=== PATIENT | male | born 1955 | race Caucasian/White ===

== ENCOUNTER 2022-01-28 05:30 | Inpatient (IN) | payer OTHER, SELFPAY ==
--- NOTE | ~2022-01-28 | CT_ITS ---
EXAMINATION: CT ABDOMEN AND PELVIS WITH CONTRAST CLINICAL INFORMATION: Abdominal pain. Elevated white blood count. COMPARISON: None TECHNIQUE: Multidetector volumetric images were obtained from the superior aspect of the liver through the pubic symphysis following administration 85 mL of Omnipaque 350 intravenous contrast. Sagittal and coronal reformatted images were obtained on the technologist's workstation. Oral contrast: No This CT examination was performed using dose optimization techniques as appropriate, variously including the following: *Automated exposure control *Adjustment of mA and/or kV according to patient size (this includes techniques or standardized protocols for targeted exams where dose is matched to indication/reason for exam; i.e. extremities or head) *Use of iterative reconstruction technique DLP: 1112 mGy-cm FINDINGS: LUNG BASES: There is 2 nodule right lower lobe on axial image 11/09. The lung bases are otherwise clear. The heart size is normal. LIVER, GALLBLADDER, AND BILIARY TREE: The liver is normal in size, shape, and attenuation. No focal hepatic lesion or biliary ductal dilatation is present. There are radiopaque dependent gallstones. No wall thickening seen. PANCREAS: Unremarkable. SPLEEN: Unremarkable. ADRENAL GLANDS: Unremarkable. KIDNEYS AND URETERS: The kidneys are normal in size, shape, and attenuation. No hydronephrosis, hydroureter, or calculi seen. No perinephric stranding. BLADDER: There is a solid lesion occupying the entire bladder with minimal fluid along anterior superior aspect. The solid mass measures 55.6 minutes. Question large mass versus hematoma. There is no gas visualized. GASTROINTESTINAL TRACT: There is scattered stool, diverticuli and gas seen throughout the colon without any significant distention or diverticulitis.. The small bowel loops are normal caliber. Appendix is normal caliber. There is no free air or free fluid. ABDOMINAL WALL: No significant hernia is appreciated. LYMPH NODES: Normal. VASCULAR: Unremarkable. PELVIC VISCERA: There is nonspecific fat stranding seen in the pelvis but no evidence of diverticulitis. The prostate gland is enlarged with dense calcification. Prominent seminal vesicles is seen. There are prominent bilateral inguinal canals containing fat. OSSEOUS STRUCTURES: There are degenerative disc changes L5-S1 disc level with moderate ventral and posterior spondylosis. Rest the disc heights are normal. There is moderate ventral spondylosis lower dorsal spine. There is bilateral L4-L5 facet joint arthropathy and hypertrophy. No lytic process seen. CT/CT abdomen pelvis w con IMPRESSION: No acute intra-abdominal process seen. Colonic diverticulosis with no distinct diverticulitis seen. Moderate prostate enlargement with moderate size central gland calcification. There is a soft tissue mass in the region of urinary bladder likely intraluminal mass or large hematoma. There is no gas visualized to suspect any possible inflammatory changes. There is nonspecific fat stranding seen in the pelvis. Cholelithiasis without wall thickening. Moderate constipation. Results were discussed with Dr. Aundrea Romero by phone in the ER at 10:52 AM
[2022-01-28 05:45] VITALS: BP 151/71; PULSE 88; RESP 24; TEMP 36.9; O2SAT 96; BMI 42.5
[2022-01-28 06:02] LABS: Hematocrit 42.5 % (42.0-52.0); Hemoglobin 14.7 g/dl (14.0-18.0); Mean Corpuscular HGB Conc 34.6 g/dl (31.0-36.0); Mean Corpuscular Hemoglobin 33.4 pg (27.0-33.0); Mean Corpuscular Volume 96.6 fL (80.0-98.0); Platelet Count 160 X10*3/uL (160-400); Red Cell Distribution Width 12.4 % (11.0-16.0); White Blood Count 27.4 X10*3/uL (4.8-10.8)
[2022-01-28 06:23] LABS: Alanine Aminotransferase 19 U/L (0-40); Albumin Level 4.1 g/dL (3.5-5.0); Alkaline Phosphatase 54 U/L (39-117); Anion Gap 15 (12-20); Aspartate Amino Transferase 18 U/L (5-37); Bilirubin Total 1.4 mg/dL (0.0-1.0); Blood Urea Nitrogen 11 mg/dL (9-16); Calcium 9.3 mg/dL (8.4-10.2); Carbon Dioxide 23 mmol/L (22-29); Chloride 102 mmol/L (96-108); Creatinine Clr Calc Pharmacy 115.4; Estimated Glomerular Filt Rate > 60; Glucose Random 240 mg/dL (60-115); Potassium 3.8 mmol/L (3.3-5.1); Sodium 136 mmol/L (135-145); Total Protein 7.1 g/dL (6.5-8.0)
--- NOTE | 2022-01-28 06:30 | ED.GENADULT ---
HPI - General Adult General Chief complaint: General Medical Stated complaint: unable to urinate/defacate; stomach discomfort Time Seen by Provider: 01/28/22 06:28 Source: patient Mode of arrival: ambulatory Limitations: no limitations Related Data Previous Rx's Medication Instructions Recorded tadalafil 10 mg tablet 10 mg PO DAILY PRN 30 Days #7 tab 09/22/21 Allergies Allergy/AdvReac Type Severity Reaction Status Date / Time No Known Allergies Allergy Unverified 07/19/20 14:46 [No Known Allergies*] Physical Exam ED Vital Signs: Vital Signs - 24 hr 01/28/22 05:45 Temperature 98.4 F Pulse Rate 88 Respiratory Rate 24 H Blood Pressure 151/71 H Pulse Oximetry 96 BMI result Body Mass Index 42.5 Medical Decision Making Lab Data Result diagrams: 01/28/22 05:56 01/28/22 05:56 Labs: Lab Results 01/28/22 01/28/22 Range/Units 05:56 05:56 WBC 27.4 H (4.8-10.8) X10*3/uL RBC 4.40 L (4.60-5.80) X10*6/uL Hgb 14.7 (14.0-18.0) g/dl Hct 42.5 (42.0-52.0) % MCV 96.6 (80.0-98.0) fL MCH 33.4 H (27.0-33.0) pg MCHC 34.6 (31.0-36.0) g/dl RDW 12.4 (11.0-16.0) % Plt Count 160 (160-400) X10*3/uL MPV 10.0 (9.4-12.4) fL Absolute Nucleated RBC 0.000 (0.0-0.012) X10*3/uL Nucleated RBC % (auto) 0.0 (0.0-0.2) /100WBC Sodium 136 (135-145) mmol/L Potassium 3.8 (3.3-5.1) mmol/L Chloride 102 (96-108) mmol/L Carbon Dioxide 23 (22-29) mmol/L Anion Gap 15 (12-20) BUN 11 (9-16) mg/dL Creatinine 0.84 (0.5-1.4) mg/dL Estim Creat Clear Calc 115.4 Estimated GFR > 60 Random Glucose 240 H (60-115) mg/dL Calcium 9.3 (8.4-10.2) mg/dL Total Bilirubin 1.4 H (0.0-1.0) mg/dL AST 18 (5-37) U/L ALT 19 (0-40) U/L Alkaline Phosphatase 54 (39-117) U/L Total Protein 7.1 (6.5-8.0) g/dL Albumin 4.1 (3.5-5.0) g/dL Discharge Plan Discharge Prescriptions: No Action tadalafil 10 mg tablet 10 mg PO DAILY PRN (Reason: sexual activity) 30 Days Qty: 7 7RF Rx Instructions: administer approximately 30min before sexual activity; do not use more than 1 dose per 24hrs
--- NOTE | 2022-01-28 06:40 | ED_ITS ---
HPI - Abdominal Pain General Chief Complaint: General Medical Stated Complaint: unable to urinate/defacate; stomach discomfort Time Seen by Provider: 01/28/22 06:28 Source: patient Mode of arrival: ambulatory Limitations: no limitations History of Present Illness MD elicited complaint: abdominal pain (feels constipated and having a hard time voiding) Onset (ago): day(s) (2) Pain Consistency: constant Location: diffuse Severity: moderate Quality: aching Radiation: none Migration to: no migration Exacerbating factors: nothing Relieving factors: nothing Context: other (initially thought he had a stomach flu but then noted it was hard to urinate and hard to have BM) Associated symptoms: nausea, chills, constipation and dysuria Related Data Home Medications Medication Instructions Recorded Confirmed amlodipine 10 mg tablet 1 tab PO DAILY 01/28/22 01/28/22 aspirin 81 mg tablet,delayed 81 mg PO DAILY 01/28/22 01/28/22 release atorvastatin 40 mg tablet 1 tab PO BEDTIME 01/28/22 01/28/22 bumetanide 1 mg tablet 2 tab PO DAILY 01/28/22 01/28/22 lisinopril 20 mg tablet 1 tab PO BEDTIME 01/28/22 01/28/22 lisinopril 40 mg tablet 1 tab PO QAM 01/28/22 01/28/22 metoprolol succinate 200 mg 1 tab PO DAILY 01/28/22 01/28/22 tablet,extended release 24 hr potassium chloride 10 mEq 1 cap PO DAILY 01/28/22 01/28/22 capsule,extended release Allergies Allergy/AdvReac Type Severity Reaction Status Date / Time No Known Allergies Allergy Unverified 07/19/20 14:46 [No Known Allergies*] Review of Systems Review of Systems Constitutional : No Weight loss, No Fever, pos Chills ENT/Mouth : No sore throat, No Rhinorrhea Eyes: No Swelling, No Redness Cardiovascular : No Chest Pain, No SOB, NoEdema Respiratory : No Cough, No Sputum, No Wheezing Gastrointestinal : Positive Nausea, no Vomiting, no Diarrhea, positive abdominal Pain, No Hematochezia, No Melena, pos constipation Genitourinary : pos Dysuria, pos Urinary Frequency, No Hematuria, No Urgency Musculoskeletal : No joint pain, No Myalgias, No Joint Swelling Skin : No Skin Lesions, No rash Neuro : No Weakness, No Numbness, No Dizziness, No Headache Psych : No Anxiety/Panic, No Depression Heme/Lymph: No Bruising, No Lymphadenopathy Endocrine : No Polyuria, No Polydipsia All other systems reviewed and are negative. [facility] Past Medical History Attestation statement: The following information was validated with the patient. Medical History CAD (coronary artery disease) HTN (hypertension) Hyperlipidemia Social History Social History Patient Tobacco Use Status: Never used Tobacco Use of substances other than those prescribed or required for medical reasons: No Advance Directives: No Advance Directives Information Provided: No Physical Exam ED Vital Signs: Vital Signs - 24 hr 01/28/22 05:45 01/28/22 10:00 01/28/22 12:00 Temperature 98.4 F Pulse Rate 88 88 84 Respiratory Rate 24 H 18 16 Blood Pressure 151/71 H 154/84 H 150/80 H Pulse Oximetry 96 97 98 BMI result Body Mass Index 42.5 Appearance: Alert. Oriented X3. Anxious mild acute distress. Eyes: Pupils equal, round and reactive to light. ENT: Pharynx normal. Neck: Normal inspection. Neck supple. CVS: Normal heart rate and rhythm. Pulses normal. Respiratory: No respiratory distress. Breath sounds normal. Abdomen: Soft and diffusely ttp, obese : normal appearance Skin: Skin warm and dry. Normal skin color. Normal skin turgor. Extremities: No lower extremity edema. No calf ttp Neuro: Oriented X 3. No motor deficit. No sensory deficit. Course Course Course Narrative: message sent to Dr. Oliver given possible bladder mass - plan to admit to medicine, repeat lactic acid downtrending no hematuria so hematoma seems unlikely able to void on his own no signs of obstruction MDM - Abdominal Pain MDM Narrative Medical decision making narrative: 66 yo male with hx of HTN, HLD, CAD s/p stent here with c/o abdominal pain , dysuria, constipation feels like he needs to pee then cannot. Had labs from waiting room found to have WBC count of 27 - states he has not been told he has a hx of elevated WBC in the past. At this time labs, cultures, lactic acid, CT scan for diverticulitis/abscess ordered, IVF. Lab Data Result diagrams: 01/28/22 05:56 01/28/22 05:56 Labs: Lab Results 01/28/22 01/28/22 01/28/22 Range/Units 05:56 05:56 06:55 WBC 27.4 H (4.8-10.8) X10*3/uL RBC 4.40 L (4.60-5.80) X10*6/uL Hgb 14.7 (14.0-18.0) g/dl Hct 42.5 (42.0-52.0) % MCV 96.6 (80.0-98.0) fL MCH 33.4 H (27.0-33.0) pg MCHC 34.6 (31.0-36.0) g/dl RDW 12.4 (11.0-16.0) % Plt Count 160 (160-400) X10*3/uL MPV 10.0 (9.4-12.4) fL Absolute Nucleated RBC 0.000 (0.0-0.012) X10*3/uL Nucleated RBC % (auto) 0.0 (0.0-0.2) /100WBC Sodium 136 (135-145) mmol/L Potassium 3.8 (3.3-5.1) mmol/L Chloride 102 (96-108) mmol/L Carbon Dioxide 23 (22-29) mmol/L Anion Gap 15 (12-20) BUN 11 (9-16) mg/dL Creatinine 0.84 (0.5-1.4) mg/dL Estim Creat Clear Calc 115.4 Estimated GFR > 60 Random Glucose 240 H (60-115) mg/dL Lactic Acid 3.7 H* (0.5-2.0) mmol/L Lactic Acid F/U @ 2Hr (0.5-2.0) mmol/L Calcium 9.3 (8.4-10.2) mg/dL Magnesium (1.6-2.6) mg/dL Total Bilirubin 1.4 H (0.0-1.0) mg/dL AST 18 (5-37) U/L ALT 19 (0-40) U/L Alkaline Phosphatase 54 (39-117) U/L Total Protein 7.1 (6.5-8.0) g/dL Albumin 4.1 (3.5-5.0) g/dL Urine Color Urine Appearance Urine pH (5.0-8.0) Ur Specific [place] (1.005-1.025) Urine Protein (NEG-TRACE) MG/DL Urine Glucose (UA) (NEG) MG/DL Urine Ketones (NEG) MG/DL Urine Blood (NEG) Urine Nitrite (NEG) Ur Leukocyte Esterase (NEG) Urine RBC (0) /HPF Urine WBC (0-4) /HPF Ur Squamous Epith Cells /LPF Urine Bacteria /LPF COVID-19 (JASPER) (Negative) COVID-19 Clin Com 01/28/22 01/28/22 01/28/22 Range/Units 06:55 06:55 07:59 WBC (4.8-10.8) X10*3/uL RBC (4.60-5.80) X10*6/uL Hgb (14.0-18.0) g/dl Hct (42.0-52.0) % MCV (80.0-98.0) fL MCH (27.0-33.0) pg MCHC (31.0-36.0) g/dl RDW (11.0-16.0) % Plt Count (160-400) X10*3/uL MPV (9.4-12.4) fL Absolute Nucleated RBC (0.0-0.012) X10*3/uL Nucleated RBC % (auto) (0.0-0.2) /100WBC Sodium (135-145) mmol/L Potassium (3.3-5.1) mmol/L Chloride (96-108) mmol/L Carbon Dioxide (22-29) mmol/L Anion Gap (12-20) BUN (9-16) mg/dL Creatinine (0.5-1.4) mg/dL Estim Creat Clear Calc Estimated GFR Random Glucose (60-115) mg/dL Lactic Acid (0.5-2.0) mmol/L Lactic Acid F/U @ 2Hr (0.5-2.0) mmol/L Calcium (8.4-10.2) mg/dL Magnesium 1.9 (1.6-2.6) mg/dL Total Bilirubin (0.0-1.0) mg/dL AST (5-37) U/L ALT (0-40) U/L Alkaline Phosphatase (39-117) U/L Total Protein (6.5-8.0) g/dL Albumin (3.5-5.0) g/dL Urine Color YELLOW Urine Appearance HAZY Urine pH 5.5 (5.0-8.0) Ur Specific [place] 1.020 (1.005-1.025) Urine Protein NEG (NEG-TRACE) MG/DL Urine Glucose (UA) NEG (NEG) MG/DL Urine Ketones NEG (NEG) MG/DL Urine Blood 2+ H (NEG) Urine Nitrite POS H (NEG) Ur Leukocyte Esterase 2+ H (NEG) Urine RBC 0-2 (0) /HPF Urine WBC 15-29 H (0-4) /HPF Ur Squamous Epith Cells TRACE /LPF Urine Bacteria 3+ /LPF COVID-19 (JASPER) Negative (Negative) COVID-19 Clin Com See Note 01/28/22 Range/Units 10:47 WBC (4.8-10.8) X10*3/uL RBC (4.60-5.80) X10*6/uL Hgb (14.0-18.0) g/dl Hct (42.0-52.0) % MCV (80.0-98.0) fL MCH (27.0-33.0) pg MCHC (31.0-36.0) g/dl RDW (11.0-16.0) % Plt Count (160-400) X10*3/uL MPV (9.4-12.4) fL Absolute Nucleated RBC (0.0-0.012) X10*3/uL Nucleated RBC % (auto) (0.0-0.2) /100WBC Sodium (135-145) mmol/L Potassium (3.3-5.1) mmol/L Chloride (96-108) mmol/L Carbon Dioxide (22-29) mmol/L Anion Gap (12-20) BUN (9-16) mg/dL Creatinine (0.5-1.4) mg/dL Estim Creat Clear Calc Estimated GFR Random Glucose (60-115) mg/dL Lactic Acid (0.5-2.0) mmol/L Lactic Acid F/U @ 2Hr 2.3 H* (0.5-2.0) mmol/L Calcium (8.4-10.2) mg/dL Magnesium (1.6-2.6) mg/dL Total Bilirubin (0.0-1.0) mg/dL AST (5-37) U/L ALT (0-40) U/L Alkaline Phosphatase (39-117) U/L Total Protein (6.5-8.0) g/dL Albumin (3.5-5.0) g/dL Urine Color Urine Appearance Urine pH (5.0-8.0) Ur Specific [place] (1.005-1.025) Urine Protein (NEG-TRACE) MG/DL Urine Glucose (UA) (NEG) MG/DL Urine Ketones (NEG) MG/DL Urine Blood (NEG) Urine Nitrite (NEG) Ur Leukocyte Esterase (NEG) Urine RBC (0) /HPF Urine WBC (0-4) /HPF Ur Squamous Epith Cells /LPF Urine Bacteria /LPF COVID-19 (JASPER) (Negative) COVID-19 Clin Com Critical Care Time Critical Care Time Critical Care Time: Yes Total Critical Care Time: 35 Attestation: medical consult, IVF, IV antibiotics, discussion with radiology, admission to hospital I attest to this time spent taking care of the patient Discharge Plan Discharge Clinical Impression: Acute UTI, Acidosis, lactic, Bladder mass Abdominal pain Qualifiers: Abdominal location: generalized Qualified Code(s): R10.84 - Generalized abdominal pain Leukocytosis Qualifiers: Leukocytosis type: unspecified Qualified Code(s): D72.829 - Elevated white blood cell count, unspecified Patient Disposition: Admitted As Inpatient
[2022-01-28 07:18] LABS: Lactic Acid 3.7 mmol/L (0.5-2.0)
[2022-01-28 07:19] LABS: Magnesium 1.9 mg/dL (1.6-2.6)
[2022-01-28 07:29] LABS: COVID-19 Test Negative (Negative)
[2022-01-28] MEDS: Acetaminophen 325 MG TABLET 650 MG PO ×3 (07:32→21:51)
[2022-01-28] MEDS: ondansetron HCL 4 MG/2 ML VIAL IVPUSH (07:33)
[2022-01-28] MEDS: levoFLOXacin/D5W 500 MG/100 ML PIGGYBACK 100 MG IV (07:44)
[2022-01-28] MEDS: 0.9 % Sodium Chloride 1,000 ML 999 ML IV (07:44)
[2022-01-28 08:10] LABS: Appearance Urine HAZY; Color Urine YELLOW; Glucose Urine UA NEG (NEG); Leukocyte Esterase Urine 2+ (NEG); Nitrite Urine POS (NEG); PH 5.5 (5.0-8.0); UACC Culture Trigger YES; Urine Blood 2+ (NEG); Urine Ketones NEG (NEG); Urine Protein NEG (NEG-TRACE)
[2022-01-28 08:29] LABS: Bacteria Urine 3+ /LPF; RBC Urine 0-2 /HPF (0); Squamous Epithelial Cell Urine TRACE /LPF
[2022-01-28 09:01] LABS: Reflex Lactate? Lactic Acid Added
[2022-01-28] MEDS: iohexoL 350 MG/ML 100 ML INFUS..BTL 85 ML IV (09:50)
[2022-01-28 10:00] VITALS: BP 154/84; PULSE 88; RESP 18; O2SAT 97
--- NOTE | 2022-01-28 10:10 | PHA.MEDREC ---
Pharmacy Consult ? Medication Reconciliation Pharmacy has completed the medication reconciliation. No remarkable issues. Lynnette Benitez, AlexD
[2022-01-28 11:17] LABS: ~Lactic Acid-LAB USE ONLY 2.3 mmol/L (0.5-2.0)
[2022-01-28 12:00] VITALS: BP 150/80; PULSE 84; RESP 16; O2SAT 98
--- NOTE | 2022-01-28 12:47 | PM.IMHP ---
History of Present Illness Date of Service: 01/28/22 Attending physician on admission: Dianne Alejandre Chief Complaint: abdominal pain 66-year-old gentleman with past medical history of coronary artery disease, diastolic congestive heart failure, morbid obesity, chronic venous insufficiency presented to [facility] due to abdominal pain that started Thursday night started with nausea, difficulty in urination and bowel movement, he went to work the next day left work early due to nausea he initially felt its stomach flu therefore remained at home lying on recliner, yesterday had few small bowel movements no liquidy stools, he also developed dysuria urinary frequency, no hematuria, he denies associated fever chills, in the emergency room workup revealed a WBC count of 27,400 elevated lactic acid of 3.7, positive urinalysis for 15-29 WBC and 3+ bacteria, abdominal and pelvic CT showed moderate constipation and bladder mass patient treated in the emergency room with IV fluid with improvement in lactic acid as well as antibiotics patient is now being admitted to [facility] with a diagnosis of sepsis related to UTI. Review of Systems Review of Systems: General no headache, no dizziness, no fever chills. CVS no chest pain, no palpitation. Respiratory no cough, no sob. Gastrointestinal nausea/ vomiting, abdominal pain skin no rash musculoskeletal no pain Yes all other systems are reviewed and are negative [facility] Medical History CAD (coronary artery disease) HTN (hypertension) Hyperlipidemia Functional capacity: independent ambulation Pertinent family history: father is had diabetes and hypertension, no history of premature coronary artery disease, mother had no health problems Social History Patient Tobacco Use Status: Never used Tobacco Use of substances other than those prescribed or required for medical reasons: No Advance Directives: No Advance Directives Information Provided: No Meds Allergies Allergy/AdvReac Type Severity Reaction Status Date / Time No Known Allergies Allergy Unverified 07/19/20 14:46 [No Known Allergies*] Active Medications: Current Medications Acetaminophen (Acetaminophen 325 Mg Tablet) 650 mg PO Q6H PRN PRN Reason: Pain, Mild (Pain Scale 1-3) Amlodipine Besylate (Amlodipine Besylate 10 Mg Tablet) 10 mg PO DAILY JORGE; Protocol Aspirin (Aspirin Enteric Coated 81 Mg Tablet.Dr) 81 mg PO DAILY COUNTS INCLUDE 234 BEDS AT THE [facility] Atorvastatin Calcium (Atorvastatin Calcium 40 Mg Tablet) 40 mg PO BEDTIME COUNTS INCLUDE 234 BEDS AT THE [facility] Dextrose/Sodium Chloride (D5ns) 1,000 mls @ 100 mls/hr IVCONT .Q10H JORGE Lisinopril (Lisinopril 20 Mg Tablet) 20 mg PO BEDTIME JORGE; Protocol Lisinopril (Lisinopril 40 Mg Tablet) 40 mg PO QAM JORGE; Protocol Metoprolol Succinate (Metoprolol Succinate Er 100 Mg Tab.Er.24h) 200 mg PO DAILY COUNTS INCLUDE 234 BEDS AT THE [facility]; Protocol Ondansetron HCl (Ondansetron Hcl 4 Mg/2 Ml Vial) 4 mg IVPUSH Q8H PRN PRN Reason: Nausea and Vomiting Pharmacy Consult (Consult Rx Perform Med Rec) 1 each MISCELLANE ONCE PRN PRN Reason: Consult order Potassium Chloride (Potassium Chloride Er 10 Meq Capsule.Er) 10 meq PO DAILY COUNTS INCLUDE 234 BEDS AT THE [facility] Sodium Chloride (0.9 % Sodium Chloride Flush 3 Ml Syringe) 3 ml IVFLUSH QSHIFT COUNTS INCLUDE 234 BEDS AT THE [facility] Home Medications Medication Instructions Recorded Confirmed Last Taken Type amlodipine 10 mg tablet 1 tab PO DAILY 01/28/22 01/28/22 01/28/22 History aspirin 81 mg tablet,delayed 81 mg PO DAILY 01/28/22 01/28/22 01/28/22 History release atorvastatin 40 mg tablet 1 tab PO BEDTIME 01/28/22 01/28/22 01/27/22 History bumetanide 1 mg tablet 2 tab PO DAILY 01/28/22 01/28/22 01/28/22 History lisinopril 20 mg tablet 1 tab PO BEDTIME 01/28/22 01/28/22 01/27/22 History lisinopril 40 mg tablet 1 tab PO QAM 01/28/22 01/28/22 01/28/22 History metoprolol succinate 200 mg 1 tab PO DAILY 01/28/22 01/28/22 01/28/22 History tablet,extended release 24 hr potassium chloride 10 mEq 1 cap PO DAILY 01/28/22 01/28/22 01/28/22 History capsule,extended release Physical Exam Vital Signs and Narrative: Vital Signs: Last Vital Signs Temp 98.4 F 01/28/22 05:45 Pulse 84 01/28/22 12:00 Resp 16 01/28/22 12:00 BP 150/80 H 01/28/22 12:00 Pulse Ox 98 01/28/22 12:00 BMI result Body Mass Index 42.5 Const: Other: General awake alert x3, no acute distress. HEENT anicteric sclerae Neck supple no JVD. CVS regular rate rhythm, Respiratory lungs clear to auscultation, no respiratory distress, no wheeze, no rhonchi. Gastrointestinal abdomen soft, obese, nontender, mild discomfort suprapubic palpation, bowel sounds audible,no guarding , no rigidity. Extremities no edema. Neuro nonfocal Skin no rash psych appropriate affect musculoskeletal no deformity Results Labs CBC and Chem 7: 01/28/22 05:56 01/28/22 05:56 Labs: Laboratory Results - last 24 hr 01/28/22 01/28/22 01/28/22 05:56 05:56 06:55 MCV 96.6 MCH 33.4 H MCHC 34.6 RDW 12.4 Plt Count 160 MPV 10.0 Absolute Nucleated RBC 0.000 Nucleated RBC % (auto) 0.0 Anion Gap 15 Estim Creat Clear Calc 115.4 Estimated GFR > 60 Random Glucose 240 H Lactic Acid 3.7 H* Lactic Acid F/U @ 2Hr Calcium 9.3 Magnesium Total Bilirubin 1.4 H AST 18 ALT 19 Alkaline Phosphatase 54 Total Protein 7.1 Albumin 4.1 Urine Color Urine Appearance Urine pH Ur Specific [place] Urine Protein Urine Glucose (UA) Urine Ketones Urine Blood Urine Nitrite Ur Leukocyte Esterase Urine RBC Urine WBC Ur Squamous Epith Cells Urine Bacteria COVID-19 (JASPER) COVID-19 Clin Com 01/28/22 01/28/22 01/28/22 06:55 06:55 07:59 MCV MCH MCHC RDW Plt Count MPV Absolute Nucleated RBC Nucleated RBC % (auto) Anion Gap Estim Creat Clear Calc Estimated GFR Random Glucose Lactic Acid Lactic Acid F/U @ 2Hr Calcium Magnesium 1.9 Total Bilirubin AST ALT Alkaline Phosphatase Total Protein Albumin Urine Color YELLOW Urine Appearance HAZY Urine pH 5.5 Ur Specific [place] 1.020 Urine Protein NEG Urine Glucose (UA) NEG Urine Ketones NEG Urine Blood 2+ H Urine Nitrite POS H Ur Leukocyte Esterase 2+ H Urine RBC 0-2 Urine WBC 15-29 H Ur Squamous Epith Cells TRACE Urine Bacteria 3+ COVID-19 (JASPER) Negative COVID-19 Clin Com See Note 01/28/22 10:47 MCV MCH MCHC RDW Plt Count MPV Absolute Nucleated RBC Nucleated RBC % (auto) Anion Gap Estim Creat Clear Calc Estimated GFR Random Glucose Lactic Acid Lactic Acid F/U @ 2Hr 2.3 H* Calcium Magnesium Total Bilirubin AST ALT Alkaline Phosphatase Total Protein Albumin Urine Color Urine Appearance Urine pH Ur Specific [place] Urine Protein Urine Glucose (UA) Urine Ketones Urine Blood Urine Nitrite Ur Leukocyte Esterase Urine RBC Urine WBC Ur Squamous Epith Cells Urine Bacteria COVID-19 (JASPER) COVID-19 Clin Com Imaging Radiologist's Impressions: Impressions Abdomen/Pelvis CT 01/28/22 09:51 IMPRESSION: No acute intra-abdominal process seen. Colonic diverticulosis with no distinct diverticulitis seen. Moderate prostate enlargement with moderate size central gland calcification. There is a soft tissue mass in the region of urinary bladder likely intraluminal mass or large hematoma. There is no gas visualized to suspect any possible inflammatory changes. There is nonspecific fat stranding seen in the pelvis. Cholelithiasis without wall thickening. Moderate constipation. Results were discussed with Dr. Aundrea Romero by phone in the ER at 10:52 AM Assessment and Plan (1) Abdominal pain: Qualifiers: Abdominal location: generalized Qualified Code(s): R10.84 - Generalized abdominal pain Status: Acute (2) Leukocytosis: Qualifiers: Leukocytosis type: unspecified Qualified Code(s): D72.829 - Elevated white blood cell count, unspecified Status: Acute (3) Acute UTI: Status: Acute (4) Acidosis, lactic: Status: Acute (5) Bladder mass: Status: Acute (6) Sepsis due to urinary tract infection: Status: Acute Plan 66-year-old gentleman with past medical history significant for coronary artery disease, hypertension presented to [facility] due to acute onset of lower abdominal discomfort with urinary frequency dysuria, difficulty with voiding and defect occasion with nausea, patient diagnosed to have urinary tract infection and bladder mass therefore being admitted for further evaluation and treatment. Sepsis due to UTI patient meets sepsis criteria due to tachypnea leukocytosis and urine infection will admit to medical floor will treat with IV fluids IV antibiotics follow urine and blood cultures, follow CBC bladder mass less likely hematoma with no melchor hematuria question abscess/ underlying tumor will obtain Urology consultation, Constipation likely contributing to abdominal pain and nausea will place on stool softeners follow clinical course hypertension patient is on multiple antihypertensive medication will resume metoprolol, Norvasc, Zestril and hold Bumex due to lactic acidosis. lactic acidosis likely due to infection, lactic acid improving continue IV fluids and treat infection. coronary artery disease no chest pain, continue home medication aspirin Lipitor beta-blockers. morbid obesity weight reduction recommended with underlying history of coronary artery disease and hypertension code status full code DVT prophylaxis with compression boots avoid anticoagulation for possible cystoscopy and further workup patient will need two night hospital stay due to sepsis related to UTI and bladder mass requiring IV antibiotics and IV fluids Quality Stroke Does the patient have a stroke diagnosis?: No VTE Prior VTE?: No VTE Risk Level:: Medical - moderate - high VTE Device Contraindication: N/A - Device Ordered VTE Drug Contraindication: Treatment Not Indicated
[2022-01-28 12:49] LABS: Reflex Lactate? 2 Y
[2022-01-28] MEDS: Dextrose 5 % and 0.9 % NaCl 1,000 ML 100 ML IVCONT ×2 (13:11→21:53)
[2022-01-28 13:29] LABS: ~Lactic Acid-LAB USE ONLY 1.7 mmol/L (0.5-2.0)
[2022-01-28] MEDS: 0.9 % Sodium Chloride Flush 3 ML SYRINGE IVFLUSH (15:36)
[2022-01-28 15:39] VITALS: BP 153/79; PULSE 79; RESP 16; TEMP 37.7; O2SAT 97
--- NOTE | 2022-01-28 18:34 | PC.NURSE ---
Report to Noni in Overflow
[2022-01-28] MEDS: Atorvastatin Calcium 40 MG TABLET PO (20:33)
[2022-01-28] MEDS: lisinopriL 20 MG TABLET PO (20:34)
--- NOTE | 2022-01-28 21:14 | PC.NURSE ---
P patient reports using Cpap at home,unable to bring his own I Dr. Carranza notified E awaiting new orders
[2022-01-28 23:41] VITALS: BP 167/87; PULSE 84; RESP 17; TEMP 37.2; O2SAT 97
[2022-01-29 07:46] VITALS: BP 161/77; PULSE 84; RESP 20; TEMP 36.7; O2SAT 95
[2022-01-29] MEDS: lisinopriL 40 MG TABLET PO (08:24)
[2022-01-29] MEDS: Aspirin Enteric Coated 81 MG TABLET.DR PO (08:24)
[2022-01-29] MEDS: Metoprolol Succinate ER 100 MG TAB.ER.24H 200 MG PO (08:24)
[2022-01-29] MEDS: Dextrose 5 % and 0.9 % NaCl 1,000 ML 100 ML IVCONT (08:25)
[2022-01-29] MEDS: amLODIPine Besylate 10 MG TABLET PO (08:25)
[2022-01-29] MEDS: levoFLOXacin/D5W 500 MG/100 ML PIGGYBACK 100 MG IV (08:25)
[2022-01-29] MEDS: Acetaminophen 325 MG TABLET 650 MG PO ×2 (08:42→16:19)
[2022-01-29 09:04] LABS: MANUAL DIFF FLAG NO
[2022-01-29 09:09] LABS: Basophils Percent Auto 0.2 % (0-2); Eosinophils Absolute Auto 0.1 X10*3/uL (0.0-0.4); Eosinophils Percent Auto 0.4 % (0-4); Hematocrit 41.9 % (42.0-52.0); Hemoglobin 14.5 g/dl (14.0-18.0); Imm Gran Abs Auto 0.29 X10*3/uL (0.00-0.03); Imm Gran Pct Auto 1.5 % (0.0-0.4); Lymphocytes Absolute Auto 1.3 X10*3/uL (1.2-4.9); Lymphocytes Percent Auto 6.8 % (20-40); Mean Corpuscular HGB Conc 34.6 g/dl (31.0-36.0); Mean Corpuscular Hemoglobin 32.8 pg (27.0-33.0); Mean Corpuscular Volume 94.8 fL (80.0-98.0); Monocytes Absolute Auto 1.2 X10*3/uL (0.1-1.2); Monocytes Percent Auto 6.3 % (2-11); Neutrophils Absolute Auto 16.3 x10*3/uL (2.0-8.3); Neutrophils Percent Auto 84.8 % (45-73); Platelet Count 151 X10*3/uL (160-400); Red Blood Count 4.42 X10*6/uL (4.60-5.80); White Blood Count 19.2 X10*3/uL (4.8-10.8)
[2022-01-29 09:27] LABS: Anion Gap 12 (12-20); Blood Urea Nitrogen 6 mg/dL (9-16); Calcium 8.9 mg/dL (8.4-10.2); Carbon Dioxide 24 mmol/L (22-29); Chloride 105 mmol/L (96-108); Creatinine Clr Calc Pharmacy 156.3; Estimated Glomerular Filt Rate > 60; Glucose Random 141 mg/dL (60-115); Potassium 3.6 mmol/L (3.3-5.1); Sodium 137 mmol/L (135-145)
--- NOTE | 2022-01-29 13:21 | HO.PM.IMPN ---
Subjective Subjective Date of Service: 01/29/22 Interval History: feeling better this morning, has been using urinal frequently last night since was on IV fluid denies fever, chills , no dysuria, no nausea, no vomiting, acute overnight events. Review of Systems Review of Systems: Yes all other systems are reviewed and are negative Physical Exam Vital Signs: Vital Signs: Last Vital Signs Temp 98.1 F 01/29/22 07:46 Pulse 84 01/29/22 07:46 Resp 20 01/29/22 07:46 BP 161/77 H 01/29/22 07:46 Pulse Ox 95 01/29/22 07:46 BMI result Body Mass Index 42.5 Const: Other: General? awake alert x3, no acute distress. HEENT anicteric sclerae? Neck supple no JVD. CVS? regular rate rhythm, Respiratory lungs clear to auscultation, no respiratory distress, no wheeze, no rhonchi. Gastrointestinal abdomen soft, obese, nontender, mild discomfort suprapubic palpation, bowel sounds audible,no guarding , no rigidity. Extremities no? edema. Neuro nonfocal Skin no rash psych appropriate affect musculoskeletal no deformity Objective Data Active Medications Acetaminophen (Acetaminophen 325 Mg Tablet) 650 mg PO Q6H PRN PRN Reason: Pain, Mild (Pain Scale 1-3) Last Admin: 01/29/22 08:42 Dose: 650 mg Documented by: KELSEY Amlodipine Besylate (Amlodipine Besylate 10 Mg Tablet) 10 mg PO DAILY [facility]; Protocol Last Admin: 01/29/22 08:25 Dose: 10 mg Documented by: KELSEY Aspirin (Aspirin Enteric Coated 81 Mg Tablet.) 81 mg PO DAILY [facility] Last Admin: 01/29/22 08:24 Dose: 81 mg Documented by: KELSEY Atorvastatin Calcium (Atorvastatin Calcium 40 Mg Tablet) 40 mg PO BEDTIME [facility] Last Admin: 01/28/22 20:33 Dose: 40 mg Documented by: WILLIAN Dextrose/Sodium Chloride (D5ns) 1,000 mls @ 100 mls/hr IVCONT .Q10H [facility] Last Admin: 01/29/22 08:25 Dose: 100 mls/hr Documented by: KELSEY Levofloxacin (Levaquin) 500 mg in 100 mls @ 100 mls/hr IV Q24H [facility] Last Infusion: 01/29/22 09:46 Dose: 0 mls/hr Documented by: KELSEY Lisinopril (Lisinopril 20 Mg Tablet) 20 mg PO BEDTIME [facility]; Protocol Last Admin: 01/28/22 20:34 Dose: 20 mg Documented by: WILLIAN Lisinopril (Lisinopril 40 Mg Tablet) 40 mg PO DAILY [facility]; Protocol Last Admin: 01/29/22 08:24 Dose: 40 mg Documented by: KELSEY Metoprolol Succinate (Metoprolol Succinate Er 100 Mg Tab.Er.24h) 200 mg PO DAILY [facility]; Protocol Last Admin: 01/29/22 08:24 Dose: 200 mg Documented by: KELSEY Ondansetron HCl (Ondansetron Hcl 4 Mg/2 Ml Vial) 4 mg IVPUSH Q8H PRN PRN Reason: Nausea and Vomiting Pharmacy Consult (Consult Rx Perform Med Rec) 1 each MISCELLANE ONCE PRN PRN Reason: Consult order Potassium Chloride (Potassium Chloride Er 10 Meq Capsule.Er) 10 meq PO DAILY [facility] Last Admin: 01/29/22 08:26 Dose: Not Given Documented by: KELSEY Non-Admin Reason: Patient Refused Sodium Chloride (0.9 % Sodium Chloride Flush 3 Ml Syringe) 3 ml IVFLUSH QSHIFT [facility] Last Admin: 01/29/22 08:25 Dose: Not Given Documented by: KELSEY Non-Admin Reason: IV Running Labs CBC & Chem 7: 01/29/22 08:44 01/29/22 08:44 Labs: Laboratory Results - last 24 hr 01/28/22 01/29/22 01/29/22 13:03 08:44 08:44 MCV 94.8 MCH 32.8 MCHC 34.6 RDW 12.0 Plt Count 151 L MPV 10.0 Immature Gran % (Auto) 1.5 H Neut % (Auto) 84.8 H Lymph % (Auto) 6.8 L [place] % (Auto) 6.3 Eos % (Auto) 0.4 Baso % (Auto) 0.2 Lymph # (Auto) 1.3 [place] # (Auto) 1.2 Eos # (Auto) 0.1 Baso # (Auto) 0.0 Abs Immat Gran (auto) 0.29 H Absolute Neuts (auto) 16.3 H Absolute Nucleated RBC 0.000 Nucleated RBC % (auto) 0.0 Anion Gap 12 Estim Creat Clear Calc 156.3 Estimated GFR > 60 Random Glucose 141 H D Lactic Acid F/U @ 4Hr 1.7 Calcium 8.9 Microbiology Microbiology Results: Microbiology 01/28/22 Unknown Urine Culture - Preliminary Urine clean catch - Urine chavez top Gram negative joshua 01/28/22 06:55 Blood Culture - Preliminary Blood - Venous No growth after 24 hours. 01/28/22 06:55 Blood Culture - Preliminary Blood - Venous No growth after 24 hours. Assessment and Plan (1) Sepsis due to urinary tract infection: Status: Acute (2) Abdominal pain: Status: Acute (3) Leukocytosis: Status: Acute (4) Acute UTI: Status: Acute (5) Acidosis, lactic: Status: Acute (6) Bladder mass: Status: Acute Plan 66-year-old gentleman with past medical history significant for coronary artery disease, hypertension presented to [facility] due to acute onset of lower abdominal discomfort with urinary frequency dysuria, difficulty with voiding and defect occasion with nausea, patient diagnosed to have urinary tract infection and bladder mass therefore being admitted for? further evaluation and treatment. ? Sepsis due to UTI ? WBC trending down tachypnea resolved continue IV Levaquin, urine culture growing Gram-negative joshua blood cultures x2 negative times 24 hours, will DC IV fluid follow clinical course and final sensitivity ? bladder mass ? less likely hematoma with no melchor hematuria, question abscess/ underlying tumor await Urology input. ? Constipation had small bowel movement last night, will add stool softeners abdominal pain and nausea improved. ? hypertension BP elevated ,on multiple antihypertensive medication metoprolol, Norvasc, Zestril , will DC IV fluids, Bumex and hold, follow BP and resume Bumex ? lactic acidosis likely due to infection, lactic acid normalized DC IV fluids ? coronary artery disease no chest pain, continue home medication aspirin Lipitor beta-blockers. ? morbid obesity weight reduction recommended with underlying history of coronary artery disease and hypertension ? code status full code ? ? DVT prophylaxis with compression boots avoid anticoagulation for possible cystoscopy and further workup ?? patient will need in patient's stay due to persistent leukocytosis, bladder mass needs urology evaluation and continued IV antibiotics. Quality Stroke Does the patient have a stroke diagnosis?: No VTE Prior VTE?: No VTE Risk Level:: Medical - moderate - high VTE Device Contraindication: N/A - Device Ordered VTE Drug Contraindication: Treatment Not Indicated
--- NOTE | 2022-01-29 13:57 | MHC.CM.PN ---
PATIENT LIVES WITH FAMILY MEMBER HE HAS BEEN VACCINATED X 3 AGAINST COVID-19 HE WILL ATTEMPT TO GET THE DATES TO BE UPLOADED INTO [employer] HE IS FULLY INDEPENDENT NO DME OR VNA SERVICES. SISTER AND MOTHER ARE NEW HCP. COPY TO BE UPLOADED INTO [employer] AND PLACED IN CHART. CASE MANAGEMENT FOLLOWING
[2022-01-29] MEDS: Lactulose 20 GM/30 ML SOLUTION PO (14:34)
[2022-01-29 15:43] VITALS: BP 176/96; PULSE 78; RESP 18; TEMP 36.4; O2SAT 97
[2022-01-29] MEDS: 0.9 % Sodium Chloride Flush 3 ML SYRINGE IVFLUSH (16:20)
[2022-01-29] MEDS: lisinopriL 20 MG TABLET PO (21:15)
[2022-01-29] MEDS: Atorvastatin Calcium 40 MG TABLET PO (21:15)
[2022-01-29] MEDS: Docusate Sodium 100 MG CAPSULE 200 MG PO (21:15)
[2022-01-29 21:17] VITALS: BP 183/90; PULSE 79; RESP 18
[2022-01-29 23:35] VITALS: BP 158/75; PULSE 88; RESP 17; TEMP 36.3; O2SAT 98
[2022-01-30] MEDS: 0.9 % Sodium Chloride Flush 3 ML SYRINGE IVFLUSH ×2 (00:47→07:47)
[2022-01-30] MEDS: Acetaminophen 325 MG TABLET 650 MG PO ×2 (00:55→07:46)
[2022-01-30 06:07] LABS: MANUAL DIFF FLAG NO
[2022-01-30 06:16] LABS: Basophils Percent Auto 0.1 % (0-2); Eosinophils Absolute Auto 0.1 X10*3/uL (0.0-0.4); Eosinophils Percent Auto 1.4 % (0-4); Hematocrit 40.3 % (42.0-52.0); Hemoglobin 13.9 g/dl (14.0-18.0); Imm Gran Abs Auto 0.04 X10*3/uL (0.00-0.03); Imm Gran Pct Auto 0.4 % (0.0-0.4); Lymphocytes Absolute Auto 1.1 X10*3/uL (1.2-4.9); Mean Corpuscular HGB Conc 34.5 g/dl (31.0-36.0); Mean Corpuscular Hemoglobin 32.8 pg (27.0-33.0); Mean Platelet Volume 10.5 fL (9.4-12.4); Monocytes Absolute Auto 0.9 X10*3/uL (0.1-1.2); Neutrophils Absolute Auto 7.8 x10*3/uL (2.0-8.3); Neutrophils Percent Auto 78.1 % (45-73); Platelet Count 160 X10*3/uL (160-400); Red Blood Count 4.24 X10*6/uL (4.60-5.80); Red Cell Distribution Width 12.1 % (11.0-16.0)
[2022-01-30 06:34] LABS: Anion Gap 14 (12-20); Blood Urea Nitrogen 12 mg/dL (9-16); Calcium 8.9 mg/dL (8.4-10.2); Carbon Dioxide 23 mmol/L (22-29); Chloride 106 mmol/L (96-108); Creatinine Clr Calc Pharmacy 151.4; Estimated Glomerular Filt Rate > 60; Glucose Random 111 mg/dL (60-115); Potassium 3.8 mmol/L (3.3-5.1); Sodium 139 mmol/L (135-145)
[2022-01-30 06:55] VITALS: BP 148/90; PULSE 80; RESP 18; TEMP 36.1; O2SAT 99
[2022-01-30] MEDS: levoFLOXacin/D5W 500 MG/100 ML PIGGYBACK 100 MG IV (07:46)
[2022-01-30] MEDS: Metoprolol Succinate ER 100 MG TAB.ER.24H 200 MG PO (07:47)
[2022-01-30] MEDS: lisinopriL 40 MG TABLET PO (07:47)
[2022-01-30] MEDS: amLODIPine Besylate 10 MG TABLET PO (07:47)
[2022-01-30] MEDS: Aspirin Enteric Coated 81 MG TABLET.DR PO (07:47)
--- NOTE | 2022-01-30 14:12 | PM.UROCN ---
History of Present Illness Consult details Consult date: 01/30/22 Narrative: Arthur is a 66-year-old male Admit to hospital with urinary tract infection Elevated white count, elevated lactate Able to empty Has responded well to antibiotics WBC 27 on admission now 10 Has been on IV Levaquin Microbiology E coli pansensitive States past week had weakness of stream No prior prostate medications Recommend completing 7 days total antibiotics Start alpha-chiki PMFSH Past Medical History Medical History CAD (coronary artery disease) HTN (hypertension) Hyperlipidemia Functional capacity: independent ambulation Social History Social History Household Members: Other Household Members Other:: mother Housing: House Do you presently have visiting nurse or other home services: No Patient Tobacco Use Status: Former Tobacco user Quit Date: 35 years ago service: No Current occupational status: employed Meds Allergies Allergy/AdvReac Type Severity Reaction Status Date / Time No Known Allergies Allergy Unverified 07/19/20 14:46 [No Known Allergies*] Active Medications: Current Medications Acetaminophen (Acetaminophen 325 Mg Tablet) 650 mg PO Q6H PRN PRN Reason: Pain, Mild (Pain Scale 1-3) Last Admin: 01/30/22 07:46 Dose: 650 mg Documented by: Amlodipine Besylate (Amlodipine Besylate 10 Mg Tablet) 10 mg PO DAILY [facility]; Protocol Last Admin: 01/30/22 07:47 Dose: 10 mg Documented by: Aspirin (Aspirin Enteric Coated 81 Mg Tablet.) 81 mg PO DAILY [facility] Last Admin: 01/30/22 07:47 Dose: 81 mg Documented by: Atorvastatin Calcium (Atorvastatin Calcium 40 Mg Tablet) 40 mg PO BEDTIME [facility] Last Admin: 01/29/22 21:15 Dose: 40 mg Documented by: Docusate Sodium (Docusate Sodium 100 Mg Capsule) 200 mg PO BEDTIME [facility] Last Admin: 01/29/22 21:15 Dose: 200 mg Documented by: Levofloxacin (Levaquin) 500 mg in 100 mls @ 100 mls/hr IV Q24H [facility] Last Infusion: 01/30/22 09:18 Dose: Infused Documented by: Lisinopril (Lisinopril 20 Mg Tablet) 20 mg PO BEDTIME [facility]; Protocol Last Admin: 01/29/22 21:15 Dose: 20 mg Documented by: Lisinopril (Lisinopril 40 Mg Tablet) 40 mg PO DAILY [facility]; Protocol Last Admin: 01/30/22 07:47 Dose: 40 mg Documented by: Metoprolol Succinate (Metoprolol Succinate Er 100 Mg Tab.Er.24h) 200 mg PO DAILY [facility]; Protocol Last Admin: 01/30/22 07:47 Dose: 200 mg Documented by: Ondansetron HCl (Ondansetron Hcl 4 Mg/2 Ml Vial) 4 mg IVPUSH Q8H PRN PRN Reason: Nausea and Vomiting Pharmacy Consult (Consult Rx Perform Med Rec) 1 each MISCELLANE ONCE PRN PRN Reason: Consult order Potassium Chloride (Potassium Chloride Er 10 Meq Capsule.Er) 10 meq PO DAILY@1700 [facility] Last Admin: 01/29/22 16:18 Dose: 10 meq Documented by: Sodium Chloride (0.9 % Sodium Chloride Flush 3 Ml Syringe) 3 ml IVFLUSH QSHIFT [facility] Last Admin: 01/30/22 07:47 Dose: 3 ml Documented by: Home Medications Medication Instructions Recorded Confirmed Last Taken Type amlodipine 10 mg tablet 1 tab PO DAILY 01/28/22 01/28/22 01/28/22 History aspirin 81 mg tablet,delayed 81 mg PO DAILY 01/28/22 01/28/22 01/28/22 History release atorvastatin 40 mg tablet 1 tab PO BEDTIME 01/28/22 01/28/22 01/27/22 History bumetanide 1 mg tablet 2 tab PO DAILY 01/28/22 01/28/22 01/28/22 History lisinopril 20 mg tablet 1 tab PO BEDTIME 01/28/22 01/28/22 01/27/22 History lisinopril 40 mg tablet 1 tab PO QAM 01/28/22 01/28/22 01/28/22 History metoprolol succinate 200 mg 1 tab PO DAILY 01/28/22 01/28/22 01/28/22 History tablet,extended release 24 hr potassium chloride 10 mEq 1 cap PO DAILY 01/28/22 01/28/22 01/28/22 History capsule,extended release Physical Exam Vital Signs: Vital Signs: Last Vital Signs Temp 97 F 01/30/22 06:55 Pulse 80 01/30/22 06:55 Resp 18 01/30/22 06:55 BP 148/90 H 01/30/22 06:55 Pulse Ox 99 01/30/22 06:55 BMI result Body Mass Index 42.5 Results Labs Result diagrams: 01/30/22 05:22 01/30/22 05:22 Labs: Abnormal lab results 01/30/22 Range/Units 05:22 RBC 4.24 L (4.60-5.80) X10*6/uL Hgb 13.9 L (14.0-18.0) g/dl Hct 40.3 L (42.0-52.0) % Neut % (Auto) 78.1 H (45-73) % Lymph % (Auto) 11.0 L (20-40) % Lymph # (Auto) 1.1 L (1.2-4.9) X10*3/uL Abs Immat Gran (auto) 0.04 H (0.00-0.03) X10*3/uL Short CBC 01/30/22 Range/Units 05:22 WBC 10.0 (4.8-10.8) X10*3/uL Hgb 13.9 L (14.0-18.0) g/dl Hct 40.3 L (42.0-52.0) % Plt Count 160 (160-400) X10*3/uL BMP 01/30/22 05:22 Sodium 139 Potassium 3.8 Chloride 106 Carbon Dioxide 23 BUN 12 D Creatinine 0.64 Calcium 8.9 Urine 01/28/22 Range/Units 07:59 Urine Color YELLOW Urine Appearance HAZY Urine pH 5.5 (5.0-8.0) Ur Specific [place] 1.020 (1.005-1.025) Urine Protein NEG (NEG-TRACE) MG/DL Urine Glucose (UA) NEG (NEG) MG/DL All other labs normal. Assessment and Plan (1) Acute UTI: Status: Acute (2) Bladder outlet obstruction: Status: Acute Plan Start alpha-chiki Complete 7 days antibiotics Follow-up in 12 weeks for review Procedures Date of Service Date of Service: 01/30/22
--- NOTE | 2022-01-30 15:06 | P.DS_ITS ---
DS: Providers Provider Date of Service: 01/30/22 Date of admission: 01/28/22 12:42 Primary care physician: Liseth Martinez MD Consults: 01/28/22 12:46 Consult to Urology Routine Consulting Provider: Yahir Oliver Reason for consultation: bladder mass /uti Has provider been notified: No DS: Diagnosis Discharge Diagnosis (1) Acute UTI: Status: Acute (2) Bladder outlet obstruction: Status: Acute DS: Summary Hospital Course Hospital Course: Chief Complaint:? abdominal pain ?66-year-old gentleman with past medical history of coronary artery disease, diastolic congestive heart failure, morbid obesity, chronic venous insufficiency presented to [facility] due to abdominal pain that started Thursday night started with nausea, difficulty in urination and bowel movement, he went to work the next day left work early due to nausea he initially felt its stomach flu therefore remained at home lying on? recliner, yesterday had few small bowel movements no liquidy stools, he also developed dysuria urinary frequency, no hematuria, he denies associated fever chills, in the emergency room workup revealed a WBC count of 27,400 elevated lactic acid of 3.7, positive urinalysis for 15-29 WBC and 3+ bacteria, abdominal and pelvic CT showed moderate constipation and bladder mass patient treated in the emergency room with IV fluid with improvement in lactic acid as well as antibiotics patient is now being admitted to [facility] with a diagnosis of sepsis related to UTI. hospital course 66-year-old gentleman with past medical history significant for coronary artery disease, hypertension presented to [facility] due to acute onset of lower abdominal discomfort with urinary frequency dysuria, difficulty with voiding and defect occasion with nausea, patient diagnosed to have urinary tract infection and bladder mass therefore admitted for? further evaluation and treatment. ? Sepsis due to UTI, patient admitted to medical floor treated with IV Levaquin urine culture grew E coli pansensitive ESBL negative, patient responded well to antibiotic treatment WBC normalized blood cultures x2 were negative therefore patient is being discharged home on by mouth Levaquin for 5 more days to finish a total 7 day course of antibiotic, patient seen by Dr. Oliver in regard to bladder mass he recommend to place patient on Flomax 0.4 mg and outpatient follow-up in 6 weeks ? patient was also noted to have constipation treated with stool softeners with good relief ? ? hypertension? patient being discharged on all home medication including metoprolol, Norvasc, Zestril , and Bumex ? lactic acidosis likely due to infection, improved with IV fluid ? coronary artery disease no chest pain, continue home medication aspirin L ipitor beta-blockers. ? morbid obesity weight reduction recommended with underlying history of coronary artery disease and hypertension Time Spent with Patient Time attestation: Total time spent providing and/or coordinating discharge services: Discharge coordination time: Greater than 30 minutes Quality: Stroke Does the patient have a stroke diagnosis?: No Physical Exam Vital Signs: Vital Signs: Last Vital Signs Temp 97 F 01/30/22 06:55 Pulse 80 01/30/22 06:55 Resp 18 01/30/22 06:55 BP 148/90 H 01/30/22 06:55 Pulse Ox 99 01/30/22 06:55 BMI result Body Mass Index 42.5 Const: Other: General? awake alert x3, no acute distress. HEENT anicteric sclerae? Neck supple, no JVD. CVS? regular rate rhythm, Respiratory lungs clear to auscultation, no respiratory distress, no wheeze, no rhonchi. Gastrointestinal abdomen soft, obese, nontender, bowel sounds audible,no guarding , no rigidity. Extremities no? edema. Neuro nonfocal Skin no rash psych appropriate affect musculoskeletal no deformity DS: Data Data Completed and Pending Labs on day of discharge: Laboratory Results - last 24 hr 01/30/22 01/30/22 05:22 05:22 WBC 10.0 RBC 4.24 L Hgb 13.9 L Hct 40.3 L MCV 95.0 MCH 32.8 MCHC 34.5 RDW 12.1 Plt Count 160 MPV 10.5 Immature Gran % (Auto) 0.4 Neut % (Auto) 78.1 H Lymph % (Auto) 11.0 L [place] % (Auto) 9.0 Eos % (Auto) 1.4 Baso % (Auto) 0.1 Lymph # (Auto) 1.1 L [place] # (Auto) 0.9 Eos # (Auto) 0.1 Baso # (Auto) 0.0 Abs Immat Gran (auto) 0.04 H Absolute Neuts (auto) 7.8 Absolute Nucleated RBC 0.000 Nucleated RBC % (auto) 0.0 Sodium 139 Potassium 3.8 Chloride 106 Carbon Dioxide 23 Anion Gap 14 BUN 12 D Creatinine 0.64 Estim Creat Clear Calc 151.4 Estimated GFR > 60 Random Glucose 111 Calcium 8.9 Preliminary micro results at discharge 01/28/22 06:55 Blood Culture - Preliminary Blood - Venous No growth after 48 hours. 01/28/22 06:55 Blood Culture - Preliminary Blood - Venous No growth after 48 hours. Discharge Plan Discharge Patient Disposition: Home, Self-Care Discharge Diagnosis: sepsis due to UTI bladder mass Referrals: Liseth Martinez MD [Primary Care Provider] - 1 Week Discharge Medications: New tamsulosin 0.4 mg capsule 0.4 mg PO BEDTIME 30 Days Qty: 30 1RF levofloxacin 500 mg tablet 500 mg PO DAILY 5 Days Qty: 5 0RF Continued atorvastatin 40 mg tablet 1 tab PO BEDTIME 0RF potassium chloride 10 mEq capsule, extended release 1 cap PO DAILY 0RF metoprolol succinate 200 mg tablet extended release 24 hr 1 tab PO DAILY 0RF lisinopril 20 mg tablet 1 tab PO BEDTIME 0RF amlodipine 10 mg tablet 1 tab PO DAILY 0RF bumetanide 1 mg tablet 2 tab PO DAILY 0RF lisinopril 40 mg tablet 1 tab PO QAM 0RF aspirin 81 mg Tablet,Delayed Release (Dr/Ec) 81 mg PO DAILY 0RF Discharge Orders: Discharge Order (Routine); Ordered 01/30/22 Ordered By: Dianne Alejandre Diet: advance to usual diet Activity on Discharge: As tolerated Stand Alone Forms: Patient Portal Discharge page Care Plan Goals: E coli urinary tract infection take Levaquin 1 tablet for 5 more days take Flomax 1 tablet daily and follow-up with Urology Dr. Oliver in 12 weeks Health Concerns: continue all home medications as before Plan of Treatment: follow-up with primary care physician in 1-2 weeks follow-up with Dr. Oliver in 12 weeks return to check with worsening fever chills nausea vomiting or difficulty with voiding Assessment: As per discharge summary
--- NOTE | 2022-01-30 15:31 | PC.NURSE ---
IV removed by nursing teacher Linda
--- NOTE | 2022-01-30 15:33 | MHC.CM.PN ---
PT WILL DISCHARGE HOME TODAY WITH NO SERVICE
== END 2022-01-30 15:48 | disposition home or self-care (01) | DRG 872 ==
LOC: HO.ED 08:19 → HO.EDOVER 12:47 → HO.S3 19:53
PROVIDERS: Admitting Provider Hospitalist; Emergency Provider Emergency Medicine; PCP Internal Medicine; Visit Provider Hospitalist
DX: A41.9 Sepsis, unspecified organism (principal); N39.0 Urinary tract infection, site not specified; I50.32 Chronic diastolic (congestive) heart failure; Z68.41 Body mass index [BMI] 40.0-44.9, adult; E87.2 Acidosis; D72.829 Elevated white blood cell count, unspecified; E66.01 Morbid (severe) obesity due to excess calories; N32.0 Bladder-neck obstruction; K59.00 Constipation, unspecified; N32.9 Bladder disorder, unspecified; I25.10 Atherosclerotic heart disease of native coronary artery without angina pectoris; B96.20 Unspecified Escherichia coli [E. coli] as the cause of diseases classified elsewhere; E78.5 Hyperlipidemia, unspecified; I11.0 Hypertensive heart disease with heart failure; Z20.822 Contact with and (suspected) exposure to COVID-19; Z87.891 Personal history of nicotine dependence; Z79.899 Other long term (current) drug therapy
CPT/HCPCS: 36415; 74177; 80048; 80053; 81001; 83605; 83735; 85025; 85027; 87040; 87086; 87088; 87186; 87635; 96361; 96365; 96375; 99285; 99291; J1956; J2405; Q9967

== ENCOUNTER 2022-02-28 08:45 | Outpatient (REF) | payer OTHER, SELFPAY ==
[2022-02-28 11:10] LABS: MANUAL DIFF FLAG NO
[2022-02-28 11:31] LABS: Basophils Percent Auto 0.2 % (0-2); Eosinophils Absolute Auto 0.2 X10*3/uL (0.0-0.4); Eosinophils Percent Auto 3.6 % (0-4); Hematocrit 41.6 % (42.0-52.0); Hemoglobin 14.5 g/dl (14.0-18.0); Imm Gran Abs Auto 0.02 X10*3/uL (0.00-0.03); Imm Gran Pct Auto 0.3 % (0.0-0.4); Lymphocytes Absolute Auto 1.5 X10*3/uL (1.2-4.9); Lymphocytes Percent Auto 23.3 % (20-40); Mean Corpuscular HGB Conc 34.9 g/dl (31.0-36.0); Mean Corpuscular Hemoglobin 32.8 pg (27.0-33.0); Mean Corpuscular Volume 94.1 fL (80.0-98.0); Mean Platelet Volume 10.3 fL (9.4-12.4); Monocytes Absolute Auto 0.5 X10*3/uL (0.1-1.2); Monocytes Percent Auto 8.1 % (2-11); Neutrophils Absolute Auto 4.3 x10*3/uL (2.0-8.3); Neutrophils Percent Auto 64.5 % (45-73); Platelet Count 189 X10*3/uL (160-400); Red Blood Count 4.42 X10*6/uL (4.60-5.80); Red Cell Distribution Width 12.6 % (11.0-16.0); White Blood Count 6.6 X10*3/uL (4.8-10.8)
[2022-02-28 11:38] LABS: Estimated Average Glucose 108 mg/dL; Hemoglobin A1c % 5.4 %
[2022-02-28 12:00] LABS: Alanine Aminotransferase 29 U/L (0-40); Aspartate Amino Transferase 24 U/L (5-37); Cholesterol 130 mg/dL; HDL Cholesterol 51 mg/dL; LDL Cholesterol Calculated 70 mg/dl; Triglycerides 46 mg/dL
== END 2022-02-28 08:46 | disposition home or self-care (01) ==
LOC: HO.HMGCLDS 08:45
PROVIDERS: Absent Provider Internal Medicine Cardiovascular Disease; PCP Internal Medicine; Visit Provider Internal Medicine
DX: I25.10 Atherosclerotic heart disease of native coronary artery without angina pectoris (principal); I10 Essential (primary) hypertension; D64.9 Anemia, unspecified; R73.01 Impaired fasting glucose
CPT/HCPCS: 36415; 80061; 83036; 84450; 84460; 85025

== ENCOUNTER 2022-04-11 09:05 | Outpatient (REF) | payer OTHER, SELFPAY ==
[2022-04-11 16:34] LABS: Urine Cytology See Pathology rpt
== END 2022-04-11 09:06 | disposition home or self-care (01) ==
LOC: HO.LAB 09:05
PROVIDERS: PCP Internal Medicine; Visit Provider Urology
DX: N40.1 Benign prostatic hyperplasia with lower urinary tract symptoms (principal); R31.29 Other microscopic hematuria; R33.9 Retention of urine, unspecified; N32.0 Bladder-neck obstruction; N52.9 Male erectile dysfunction, unspecified
CPT/HCPCS: 51798; 88112

== ENCOUNTER 2022-08-29 08:31 | Outpatient (REF) | payer OTHER, SELFPAY ==
[2022-08-29 11:58] LABS: Cholesterol 141 mg/dL; HDL Cholesterol 52 mg/dL; LDL Cholesterol Calculated 79 mg/dl; Triglycerides 54 mg/dL
== END 2022-08-29 08:32 | disposition home or self-care (01) ==
LOC: HO.HMGCLDS 08:31
PROVIDERS: PCP Internal Medicine; Visit Provider Internal Medicine Cardiovascular Disease
DX: I25.10 Atherosclerotic heart disease of native coronary artery without angina pectoris (principal)
CPT/HCPCS: 36415; 80061

== ENCOUNTER 2022-09-12 09:50 | Outpatient (REF) | payer OTHER, SELFPAY ==
[2022-09-12 12:34] LABS: Anion Gap 16 (12-20); Blood Urea Nitrogen 22 mg/dL (9-16); Calcium 9.3 mg/dL (8.4-10.2); Carbon Dioxide 26 mmol/L (22-29); Chloride 104 mmol/L (96-108); Estimated Glomerular Filt Rate > 60; Glucose Random 119 mg/dL (60-115); Potassium 3.9 mmol/L (3.3-5.1); Sodium 142 mmol/L (135-145)
== END 2022-09-12 09:51 | disposition home or self-care (01) ==
LOC: HO.HMGCLDS 09:50
PROVIDERS: PCP Internal Medicine; Visit Provider Internal Medicine Cardiovascular Disease
DX: I25.10 Atherosclerotic heart disease of native coronary artery without angina pectoris (principal)
CPT/HCPCS: 36415; 80048

== ENCOUNTER 2023-03-27 09:05 | Outpatient (REF) | payer OTHER, SELFPAY ==
--- NOTE | ~2023-03-27 | US_ITS ---
EXAMINATION: US VENOUS ULTRASOUND WITH DOPPLER LOWER EXTREMITY, RIGHT CLINICAL INFORMATION: Pain and swelling COMPARISON: None available. TECHNIQUE: Ultrasound of the deep veins is performed from the hip to the calf with compression sonography and color and pulse Doppler assessment. Spectral analysis with color-flow imaging is performed. Exam is limited due to swelling body habitus. FINDINGS: There is normal venous compression and respiratory variation and augmented flow. The visualized common femoral vein, superficial femoral vein, profunda femoral vein, popliteal vein, and the visualized trifurcation region shows no evidence of deep venous thrombosis. There is no significant popliteal fossa cyst. Contralateral left common femoral vein is patent. US/US venous duplex LE RT IMPRESSION: Limited exam. No DVT demonstrated in the right lower extremity.
[2023-03-27 11:17] LABS: MANUAL DIFF FLAG NO
[2023-03-27 11:38] LABS: Basophils Percent Auto 0.4 % (0-2); Eosinophils Absolute Auto 0.2 X10*3/uL (0.0-0.4); Hematocrit 41.1 % (42.0-52.0); Imm Gran Abs Auto 0.04 X10*3/uL (0.00-0.03); Imm Gran Pct Auto 0.5 % (0.0-0.4); Lymphocytes Absolute Auto 1.6 X10*3/uL (1.2-4.9); Lymphocytes Percent Auto 20.1 % (20-40); Mean Corpuscular HGB Conc 34.1 g/dl (31.0-36.0); Mean Corpuscular Hemoglobin 32.4 pg (27.0-33.0); Mean Corpuscular Volume 95.1 fL (80.0-98.0); Mean Platelet Volume 10.3 fL (9.4-12.4); Monocytes Absolute Auto 0.7 X10*3/uL (0.1-1.2); Monocytes Percent Auto 8.8 % (2-11); Neutrophils Absolute Auto 5.3 x10*3/uL (2.0-8.3); Neutrophils Percent Auto 67.2 % (45-73); Platelet Count 209 X10*3/uL (160-400); Red Blood Count 4.32 X10*6/uL (4.60-5.80); Red Cell Distribution Width 11.8 % (11.0-16.0); White Blood Count 7.9 X10*3/uL (4.8-10.8)
[2023-03-27 11:55] LABS: Estimated Average Glucose 100 mg/dL; Hemoglobin A1c % 5.1 %
[2023-03-27 12:05] LABS: Alanine Aminotransferase 36 U/L (0-40); Albumin Level 4.1 g/dL (3.5-5.0); Alkaline Phosphatase 56 U/L (39-117); Anion Gap 14 (12-20); Aspartate Amino Transferase 35 U/L (5-37); Bilirubin Total 0.7 mg/dL (0.0-1.0); Blood Urea Nitrogen 20 mg/dL (9-16); Calcium 9.4 mg/dL (8.4-10.2); Carbon Dioxide 27 mmol/L (22-29); Chloride 105 mmol/L (96-108); Cholesterol 115 mg/dL; Estimated Glomerular Filt Rate > 60; Glucose Fasting 120 mg/dL (60-99); HDL Cholesterol 46 mg/dL; LDL Cholesterol Calculated 59 mg/dl; Magnesium 2.2 mg/dL (1.6-2.6); Potassium 4.5 mmol/L (3.3-5.1); Sodium 141 mmol/L (135-145); Total Protein 7.4 g/dL (6.5-8.0); Triglycerides 54 mg/dL
[2023-03-27 12:29] LABS: Folate 16.5 ng/mL (> or = 4.0); PSA,Total (Free>4and<10) 1.46 ng/mL (0.00-4.00); Vitamin B12 540 pg/mL (200-900); Vitamin D 25-OH Total 22.9 ng/mL (>30)
== END 2023-03-27 09:06 | disposition home or self-care (01) ==
LOC: HO.HMGCX 09:05
PROVIDERS: PCP Internal Medicine; Visit Provider Internal Medicine
DX: Z00.01 Encounter for general adult medical examination with abnormal findings (principal); Z12.5 Encounter for screening for malignant neoplasm of prostate; E66.01 Morbid (severe) obesity due to excess calories; E78.5 Hyperlipidemia, unspecified; I10 Essential (primary) hypertension; I25.10 Atherosclerotic heart disease of native coronary artery without angina pectoris; R73.01 Impaired fasting glucose; N40.1 Benign prostatic hyperplasia with lower urinary tract symptoms; R33.9 Retention of urine, unspecified; R60.0 Localized edema; Z95.5 Presence of coronary angioplasty implant and graft
CPT/HCPCS: 36415; 80053; 80061; 82306; 82607; 82746; 83036; 83735; 84153; 85025; 93971

== ENCOUNTER 2023-04-21 07:59 | Outpatient (RCR) | payer OTHER, SELFPAY | END 2023-09-09 14:24 | disposition home or self-care (01) | LOC: HO.WCC 07:59 | PROVIDERS: PCP Internal Medicine; Visit Provider Physician Assistant | DX: I87.331 Chronic venous hypertension (idiopathic) with ulcer and inflammation of right lower extremity (principal); L97.811 Non-pressure chronic ulcer of other part of right lower leg limited to breakdown of skin; L97.822 Non-pressure chronic ulcer of other part of left lower leg with fat layer exposed; Q82.0 Hereditary lymphedema; I25.10 Atherosclerotic heart disease of native coronary artery without angina pectoris; Z87.891 Personal history of nicotine dependence | CPT/HCPCS: 10140; 11042; 11045; 97597; 97598; 97602; 99212; 99213; 99214 ==

== ENCOUNTER 2023-08-07 10:23 | Outpatient (REF) | payer OTHER, SELFPAY | END 2023-08-07 10:24 | disposition home or self-care (01) | LOC: HO.HMGCLDS 10:23 | PROVIDERS: PCP Internal Medicine | DX: I25.10 Atherosclerotic heart disease of native coronary artery without angina pectoris (principal); I10 Essential (primary) hypertension; E78.5 Hyperlipidemia, unspecified | CPT/HCPCS: 36415; 80048; 80061; 85025 ==

== ENCOUNTER 2024-07-08 08:19 | Outpatient (REF) | payer OTHER, SELFPAY ==
[2024-07-08 10:58] LABS: Alanine Aminotransferase 32 U/L (0-40); Anion Gap 14 (12-20); Aspartate Amino Transferase 23 U/L (5-37); Blood Urea Nitrogen 20 mg/dL (9-16); Calcium 9.7 mg/dL (8.4-10.2); Carbon Dioxide 28 mmol/L (22-29); Chloride 102 mmol/L (96-108); Cholesterol 126 mg/dL (<200); Estimated Glomerular Filt Rate > 60; Glucose Fasting 112 mg/dL (60-99); HDL Cholesterol 52 mg/dL (>40); LDL Cholesterol Calculated 61 mg/dL (<100); Potassium 3.4 mmol/L (3.3-5.1); Sodium 141 mmol/L (135-145); Triglycerides 65 mg/dL (<150); Vitamin D 25-OH Total 27.5 ng/mL (>30)
== END 2024-07-08 08:20 | disposition home or self-care (01) ==
LOC: HO.HMGCLDS 08:19
PROVIDERS: PCP Internal Medicine; Visit Provider Internal Medicine
DX: E78.5 Hyperlipidemia, unspecified (principal); R73.01 Impaired fasting glucose; I25.10 Atherosclerotic heart disease of native coronary artery without angina pectoris; I10 Essential (primary) hypertension; E66.01 Morbid (severe) obesity due to excess calories
CPT/HCPCS: 36415; 80048; 80061; 82306; 84450; 84460

== ENCOUNTER 2024-09-09 09:02 | Outpatient (AMB) | payer OTHER, SELFPAY ==
[2024-09-09 09:08] VITALS: BP 132/80; PULSE 68; O2SAT 98; BMI 46.2
--- NOTE | 2024-09-09 09:08 | A.OFFPC_ITS ---
Vital Signs 3 09/09/24 09:08 Height 5 ft 8 in Weight 304 lb BMI 46.2 BP 132/80 Blood Pressure Location Rt brachial Position Sitting Pulse 68 Pulse Source Pulse Oximeter Pulse Oximetry (%) 98 Oxygen Delivery Method Room Air Intake Visit Reasons: PE Intake Note: pt is here for PE [employer] Required: No Accompanied by: Self / Same As Patient Allergies No Known Allergies [No Known Allergies*] Allergy (Verified 09/09/24 09:08) Medication List - Last Reconciled 09/09/24 by Mary Chavis NP amlodipine-valsartan 10-320 mg 1 tab PO DAILY aspirin 81 mg PO DAILY atorvastatin 80 mg PO DAILY bumetanide 2 tabs PO DAILY cholecalciferol (vitamin D3) 1,250 mcg PO QWEEK 3 months hydralazine 25 mg PO BID potassium chloride ER 1 cap PO DAILY tadalafil 10 mg PO DAILY tamsulosin 0.4 mg PO BEDTIME 90 days Tobacco use date assessed: 09/09/24 Fall risk assessment: No Falls in past year Last assessed Fall Risk: 09/09/24 Dental Screening Dental Screen Date: 09/09/24 Did you have a dental visit in the last 12 months?: Yes Did you have a dental problem in the last 6 months where you did not have access to dental care?: No Was dental information given to patient?: Patient has dentist HPI HPI Comments 2 History of Present Illness0 Details 69 y/o male patient who presents for PE. Patient of Dr. Martinez. Pmhx significant for Morbid Obesity, Dyslipidemia, CAD, HTN, BPH and ED. He is being followed by [facility] Cardiology and Urology, who are prescribing most of his medications. Pt c/o B/L knee pain due to Arthritis. [facility] Medical History (Updated 09/09/24 @ 09:52 by Mary Chavis NP) Encounter for routine adult health examination without abnormal findings Cellulitis of right lower extremity Morbid obesity Dyslipidemia Impaired fasting glucose Bladder outlet obstruction CAD (coronary artery disease) HTN (hypertension) Surgical History Hx of heart artery stent Social History Household Members: Other Household Members Other:: mother Housing: House Do you presently have visiting nurse or other home services: No Patient Tobacco Use Status: Former Tobacco user e-Cigarette/Vaping Use: Never Used service: No Current occupational status: employed Cognitive needs: No Hearing needs: No Vision needs: No Questionnaire PHQ-9 Over the last 2 weeks, how often have you been bothered by any of the following problems? 1. Little interest or pleasure in doing things: not at all 2. Feeling down, depressed, or hopeless: not at all 3. Trouble falling or staying asleep, or sleeping too much: not at all 4. Feeling tired or having little energy: not at all 5. Poor appetite or overeating: not at all 6. Feeling bad about yourself - or that you are a failure or have let yourself or your family down: not at all 7. Trouble concentrating on things, such as reading the newspaper or watching television: not at all 8. Moving or speaking so slowly that other people could have noticed. Or the opposite - being so fidgety or restless that you have been moving around a lot more than usual: not at all 9. Thoughts that you would be better off or of hurting yourself in some way: not at all Total score: 0 Depression Screening Interpretation: Negative Depression Screening Done: Yes 98885 - PHQ-9 Billing: Yes Source: Developed by Drs. Aj Ramesh, Asha Bradford, Roberto Tripp and colleagues, with an educational rolando from [employer]. Thrive Questionnaire Date Thrive assessed: 09/09/24 I am a: Patient What is your living situation today?: I have a steady place to live Within the past 12 months, did the food you bought not last and you didn't have the money to get more?: Never true Within the past 12 months, did you worry whether your food would run out before you got money to buy more?: Never true Do you have trouble paying for medicines?: No Do you have trouble getting transportation to medical appointments?: No Do you have trouble paying your heating and electricity bill?: No Do you have trouble taking care of your child, family member or friend?: No Do you have trouble with day-to-day activities such as bathing, preparing meals, shopping, managing finances, etc.?: No Are you currently unemployed and looking for a job?: No Are you interested in more education?: No Please select the resources that you would like help with: None Currently or been in a relationship where the following occur: No concerns reported THRIVE Score: 0 AUDIT C Alcohol Use Questionnaire (AUDIT-C) 1. How often do you have a drink containing alcohol?: 2-4 times a month 2. How many drinks containing alcohol do you have on a typical day when you are drinking?: 1 or 2 3. How often do you have six or more drinks on one occasion?: Never Total Score: 2 Score Reviewed/Action Taken: Yes MANSOOR-7 AMB Questionnaire MANSOOR-7 Date MANSOOR - 7 assessed: 09/09/24 Feeling nervous, anxious, or on edge: 0 = Not at all Not being able to stop or control worryin = Not at all Worrying too much about different things: 0 = Not at all Trouble relaxin = Not at all Being so restless that it is hard to sit still: 0 = Not at all Becoming easily annoyed or irritable: 0 = Not at all Feeling afraid as if something awful might happen: 0 = Not at all Total MANSOOR-7 score (0-4 normal; 5-9 mild; 10-14 moderate; 15-21 severe): 0 Source: Developed by Drs. Aj Ramesh, Asha Bradford, Roberto Tripp and colleagues, with an educational rolando from [employer]. MANSOOR-7 Assessment Billing MANSOOR-7 Assessment Tool: MANSOOR-7 Assessment 08802 Review of Systems Const All systems reviewed & are unremarkable except as noted in HPI and below Physical exam (Primary Care) Vital Signs: Last Vital Signs Pulse 68 09/09/24 09:08 BP 132/80 09/09/24 09:08 Pulse Ox 98 09/09/24 09:08 Oxygen Delivery Method Room Air 09/09/24 09:08 BMI result Body Mass Index 46.2 Tobacco/Smoking Status: Tobacco use Status Tobacco use date assessed 09/09/24 09/09/24 09:09 Patient Tobacco Use Status Former Tobacco user 09/09/24 09:09 e-Cigarette/Vaping Use Never Used 09/09/24 09:09 PHQ-9: PHQ-9 Score PHQ-9: Total score 0 09/09/24 09:09 Depression Screening Interpretation: Negative Thrive Assessment: Date of Thrive Assessment Date Thrive assessed 09/09/24 09/09/24 09:09 Currently or been in a relationship where the following occur: No concerns reported Const General: cooperative, no acute distress and poor hygiene Nutritional Appearance: obese morbidly obese Orientation/consciousness: patient oriented x3 [facility] Head: Yes normocephalic Ears: external ears normal and TM's normal bilaterally General nose exam: Normal nares present Face and sinus: Yes sinuses nontender Mouth: moist mucous membranes Throat: Yes uvula midline Eyes Eyelids: Yes eyelids normal Pupils: Equal, round and reactive pupils present EOM: EOMs intact bilaterally Direct Ophthalmoscopy: normal light reflex Neck Neck: Yes full ROM and Yes no lymphadenopathy Resp Effort & Inspection: normal respiratory effort and able to speak in complete sentences Auscultation: clear to auscultation bilaterally, no crackles, no rales, no rhonchi and no wheezes Cardio Heart sounds: S1 normal heart sound present and S2 normal heart sound present GI Inspection: Yes Abdominal panniculus present and Yes obesity Palpation (GI): Soft to palpation, not firm, nontender, no guarding and not rigid Auscultation: normal bowel sounds Rectal Exam - Male: Yes deferred Skin General skin exam: erythema Full body images: 2 1. Lower legs, dry crusting peeling skin, red and signs of venous dermatitis. 2. Lower legs, dry crusting peeling skin, red and signs of venous dermatitis. Neuro General: patient oriented x3, gait normal and moves all extremities Cranial nerves: Yes Equal, round and reactive pupils present Extrem General: Yes full ROM Right lower extremity: lower leg Details: erythema, tenderness and pitting edema Details: 3+ Left lower extremity: lower leg Details: erythema, tenderness and pitting edema Details: 3+ Psych Speech and movement: Normal speech and movement present Coding Level of Care Code Est Pt Prev Care >65y(31912) Diagnoses Encounter for routine adult health examination without abnormal findings Z00.00 Incomplete emptying of bladder due to benign prostatic hyperplasia N40.1; R33.9 Morbid obesity E66.01 Dyslipidemia E78.5 Coronary artery disease involving three affiliated heart, unspecified vessel or lesion type, unspecified whether angina present I25.10 Coronary Disease-Associated Artery/Lesion type: unspecified vessel or lesion type [place] vs. transplanted heart: three affiliated heart Associated angina: unspecified whether angina present Primary hypertension I10 Hypertension type: primary hypertension Other male erectile dysfunction N52.8 Erectile dysfunction type: due to other cause Additional Codes MANSOOR-7 Assessment Billing - MANSOOR-7 Assessment Tool: MANSOOR-7 Assessment 42286 ([id number]) PHQ-9 - 32805 - PHQ-9 Billing: Yes ([id number]) Assessment & Plan Assessment & Plan (1) Encounter for routine adult health examination without abnormal findings: Code(s): Z00.00 - Encounter for general adult medical examination without abnormal findings Category: Medical Plan: WNL (2) Incomplete emptying of bladder due to benign prostatic hyperplasia: Code(s): N40.1 - Benign prostatic hyperplasia with lower urinary tract symptoms; R33.9 - Retention of urine, unspecified Category: Medical Plan: Managed by Urology (3) Morbid obesity: Code(s): E66.01 - Morbid (severe) obesity due to excess calories Category: Medical Plan: Weight loss, healthy diet and exercise. (4) Dyslipidemia: Code(s): E78.5 - Hyperlipidemia, unspecified Category: Medical Plan: Weight loss, healthy diet and exercise. (5) CAD (coronary artery disease): Comment: states stent about 10 years ago Code(s): I25.10 - Atherosclerotic heart disease of three affiliated coronary artery without angina pectoris Category: Medical Qualifiers: Coronary Disease-Associated Artery/Lesion type: unspecified vessel or lesion type [place] vs. transplanted heart: three affiliated heart Associated angina: u nspecified whether angina present Qualified Code(s): I25.10 - Atherosclerotic heart disease of three affiliated coronary artery without angina pectoris Plan: Managed by Cardiology (6) HTN (hypertension): Code(s): I10 - Essential (primary) hypertension Category: Medical Qualifiers: Hypertension type: primary hypertension Qualified Code(s): I10 - Essential (primary) hypertension Plan: Managed by Cardiology (7) Erectile dysfunction: Code(s): N52.9 - Male erectile dysfunction, unspecified Category: Medical Qualifiers: Erectile dysfunction type: due to other cause Qualified Code(s): N52.8 - Other male erectile dysfunction Plan: Managed by urology.
== END 2024-09-09 09:46 | disposition home or self-care (01) ==
PROVIDERS: PCP Internal Medicine; Visit Provider Nurse Practitioner Family
DX: Z00.00 Encounter for general adult medical examination without abnormal findings (principal); N40.1 Benign prostatic hyperplasia with lower urinary tract symptoms; E66.01 Morbid (severe) obesity due to excess calories; Z68.42 Body mass index [BMI] 45.0-49.9, adult; R33.9 Retention of urine, unspecified; E78.5 Hyperlipidemia, unspecified; I25.10 Atherosclerotic heart disease of native coronary artery without angina pectoris; I10 Essential (primary) hypertension; N52.8 Other male erectile dysfunction

== ENCOUNTER → 2024-09-09 09:02 | Outpatient (BNVA) | payer OTHER, SELFPAY | PROVIDERS: PCP Internal Medicine; Visit Provider Nurse Practitioner Family | DX: Z00.00 Encounter for general adult medical examination without abnormal findings (principal); N40.1 Benign prostatic hyperplasia with lower urinary tract symptoms; R33.8 Other retention of urine; E66.01 Morbid (severe) obesity due to excess calories; Z68.42 Body mass index [BMI] 45.0-49.9, adult; E78.5 Hyperlipidemia, unspecified; I25.10 Atherosclerotic heart disease of native coronary artery without angina pectoris; I10 Essential (primary) hypertension; N52.8 Other male erectile dysfunction | CPT/HCPCS: 96127 ==

== ENCOUNTER 2025-09-15 07:34 | Outpatient (REF) | payer OTHER, SELFPAY ==
--- OUTSIDE RECORDS SUMMARY | 2025-09-15 07:38 | XMS_ITS | Clinical Summary ---
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 180 tablet 1 09/30/2024 Active aspirin 81 mg chewable tablet Take 1 Tablet by mouth daily. Active tadalafiL (CIALIS) 10 mg tablet Take 10 mg by mouth daily. Active atorvastatin (LIPITOR) 80 mg tablet TAKE 1 TABLET BY MOUTH 1 TIME EACH DAY. 90 tablet 1 03/31/2025 Active amLODIPine-valsa rtan (Exforge) 10-320 mg per tablet Take 1 tablet by mouth 1 (one) time each day. 90 tablet 1 03/31/2025 6 Active bumetanide (BUMEX) 1 mg tablet Take 1 tablet (1 mg total) by mouth 2 (two) times a day. 180 each 1 03/31/2025 6 Active hydrALAZINE (APRESOLINE) 25 mg tablet Take 1 tablet (25 mg total) by mouth 2 (two) times a day. 180 each 1 03/31/2025 6 Active metoprolol succinate (TOPROL-XL) 200 mg 24 hr tablet TAKE 1 TABLET BY MOUTH 1 TIME EACH DAY. 90 tablet 3 06/27/2025 Active Active Problems Problem Noted Date Diagnosed Date Hyperlipidemia 09/05/2022 Overview (12/28/2024): Last Assessment & Plan: LDL slightly higher. Increase atorvastatin to 80 mg daily. Assessment & Plan (12/30/2024 8:53 AM EST): Continue on current medication regiment of high-dose atorvastatin. Would like LDL to be at 70 or below. CHF (congestive heart failure) ([facility] V24, [facility] V28) 12/21/2020 Overview (12/28/2024): Last Assessment & Plan: With preserved EF. On chronic diuretics. We will repeat labs. Assessment & Plan (12/30/2024 8:53 AM EST): Lower extremity edema at the appointment today, which apparently is baseline. Patient utilizes compression devices on his lower extremities. I spoke to him about limiting his sodium intake. I would like him to start checking his weights daily. Will update echocardiogram. CAD (coronary artery disease) 12/21/2020 Overview (12/28/2024): Last Assessment & Plan: no angina symptoms. He had a PCI to circumflex in 2011. We will arrange nuclear stress test. Assessment & Plan (12/30/2024 8:53 AM EST): Patient currently utilizing baby aspirin, metoprolol, atorvastatin. Spoke to the patient about adhering to a healthy cardiac diet. Also encouraged him to increase his exercise slowly. Instructed to call 911 or go to the emergency room should the patient begin to experience chest pain or pressure lasting greater than 10 minutes does not resolve with rest. I am going to be updating an echocardiogram. Orders: ECG 12 lead HTN (hypertension) 12/21/2020 Overview (12/28/2024): Last Assessment & Plan: Overall is well controlled. Assessment & Plan (12/30/2024 8:53 AM EST): Well-controlled at today's visit. Can have him continue to take blood pressure measurements at home. Would like us to reach out to the office if he consistently gets values outside of normal limits. DVT (deep venous thrombosis) ([facility] V24, [facility] V28) 12/21/2020 Overview (12/28/2024): Last Assessment & Plan: We will continue anticoagulation. Chronic venous insufficiency 12/21/2020 Overview (12/28/2024): Last Assessment & Plan: Compounded by morbid obesity. Treated conservatively. Encounters Date Type Department Care Team Description 07/26/2025 Telephone [facility] Cardiology [facility] [address] [place] [address] Clarissa Osborne MA 07/14/2025 9:00 AM EDT Ancillary Procedure [facility] Cardiology [facility] - [address] [place] [address] Coronary artery disease involving [place] coronary artery of [place] heart without angina pectoris; Chronic congestive heart failure, unspecified heart failure type (CMS/[facility]ER[facility] V24, CMS/HCC V28) 06/28/2025 Telephone [facility] Cardiology [facility] - [facility] [address] [place] [address] Jay Sheehan MD from Last 3 Months Social History Tobacco Use Types Packs/Day Years Used Date Smoking Tobacco: Former Smokeless Tobacco: Never Tobacco Cessation:Counseling Given: Not Answered Alcohol Use Standard Drinks/Week Comments Yes 0 (1 standard drink = 0.6 oz pure alcohol) 1-2 glasses of wine over the weekend Sex and Gender Information Value Date Recorded Sex Assigned at Not on file Legal Sex Male 6:53 PM EST Gender Identity Not on file Sexual Orientation Not on file Obstetrics History Last Filed Vital Signs Vital Sign Reading Time Taken Comments Blood Pressure 140/90 07/14/2025 9:21 AM EDT Pulse 65 12/30/2024 8:25 AM EST Temperature - - Respiratory Rate - - Oxygen Saturation 99% 12/30/2024 8:25 AM EST Inhaled Oxygen Concentration - - Weight 137 kg (301 lb) 07/14/2025 9:21 AM EDT Height 170.2 cm (5' 7 ) 07/14/2025 9:21 AM EDT Body Mass Index 47.14 07/14/2025 9:21 AM EDT Plan of Treatment Health Maintenance Due Date Last Done Comments Colorectal Cancer Screening: Colonoscopy 1955 RSV Immunization Adult Patients (1 - Risk 50-74 years 1-dose series) 2007 Abdominal Aortic Aneurysm (AAA) Screen 10/11/2022 Cholesterol Screening (Lipid Panel) 10/11/2022 Falls Risk Assessment 10/11/2022 Hepatitis C Screening 10/11/2022 Social Influencers of Health Screening 10/11/2022 Hypertension/CHF/CAD Annual BMP Blood Test 10/16/2022 Depression Screening 11/02/2024 COVID-19 Vaccine ( season) 2025 10/10/2021, 02/21/2021, 01/31/2021 Influenza Vaccine (#1) 2025 , 08/08/2023, 09/06/2022, Additional history exists DTaP,Tdap,and Td Vaccines (2 - Td or Tdap) 03/27/2033 03/27/2023 Zoster Vaccines Completed 05/20/2019, 050 12/2018, 08/07/2017 Pneumococcal Vaccine: 50+ Years Completed 03/27/2023 HIB Vaccines Aged Out No longer eligi ble based on patient's age to complete this topic HPV Vaccines Aged Out No longer eligi ble based on patient's age to complete this topic Hepatitis A Vaccines Aged Out No long er eligible based on patient's age to complete this topic Hepatitis B Vaccines Aged Out No long er eligible based on patient's age to complete this topic IPV Vaccines Aged Out No longer eligi ble based on patient's age to complete this topic MMR Vaccines Aged Out No longer eligi ble based on patient's age to complete this topic Meningococcal ACWY Vaccine Aged Out N o longer eligible based on patient's age to complete this topic Meningococcal B Vaccine Aged Out No l onger eligible based on patient's age to complete this topic RSV Immunization Patients Under 20 months Aged Out No longer eligible based on patient's age to complete this topic Varicella Vaccines Aged Out No longer eligible based on patient's age to complete this topic Procedures Procedure Name Priority Date/Time Associated Diagnosis Comments TRANSTHORACIC ECHOCARDIOGRAM (TTE) COMPLETE Routine 07/14/2025 9:21 AM EDT Coronary artery disease involving [place] coronary artery of [place] heart without angina pectoris Chronic congestive heart failure, unspecified heart failure type (CMS/HCC V24, CMS/HCC V28) from Last 3 Months Results * (ABNORMAL) TRANSTHORACIC ECHOCARDIOGRAM (TTE) COMPLETE (07/14/2025 9:21 AM EDT) Left Atrium Minor [place] 6.7 cm CV PACS Left Atrium Major [place] 6.2 cm CV PACS LA Area Sys (A2C) 38 cm2 CV PACS LA Area Sys (A4C) 27 cm2 CV PACS LA Volume (BP) 134 mL CV PACS RA Area 16.7 cm2 CV PACS RA 2D Volume 44 mL CV PACS AV Regurgitation PHT 875 ms CV PACS AR Max Velocity 3.2 m/s CV PACS AV Regurgitant Volume 40 mmHg CV PACS Aortic Sinus Valsalva 3.8 cm CV PACS Ascending Aorta 3.6 cm CV PACS IVC Proximal 2.2 cm CV PACS IVC Proximal 1.7 cm CV PACS IVSD 1.1(A) 0.6 - 1.0 cm CV PACS LVIDD 5.6 4.2 - 5.8 cm CV PACS LVIDS 4.9(A) 2.5 - 4.0 cm CV PACS LVOT Diameter 2.5 cm CV PACS LVOT Mean Drake 0.8 m/s CV PACS LVOT Mean Grad 3 mmHg CV PACS LVOT Peak VTI 29.1 cm CV PACS LVOT Peak Drake 1.4 m/s CV PACS LVOT Peak Gradient 8 mmHg CV PACS LVPWD 1.1(A) 0.6 - 1.0 cm CV PACS MV E' Tissue Velocity Lateral 5 cm/s CV PACS MV E' Tissue Velocity Septal 5 cm/s CV PACS LVOT Area 4.9 cm2 CV PACS LVOT Stroke Volume 143 mL CV PACS E Wave Deceleration Time 190 119 - 242 ms CV PACS MV Peak A Drake 0.66 m/s CV PACS MV Peak E Drake 1.18 m/s CV PACS PV Acceleration Time 201 ms CV PACS PV Acceleration Time 201 ms CV PACS RV Diastolic Basal Dimension 4.3(A) 2.5 - 4.1 cm CV PACS RV S' 13 cm/s CV PACS TAPSE 27 mm CV PACS TR Peak Velocity 2.79 m/s CV PACS TR Peak Gradient 31 mmHg CV PACS E/E' Ratio Septal 24 CV PACS E/E' Ratio Averaged 24 CV PACS Relative Wall Thickness ratio 0.39 CV PACS FS 13 % CV PACS LV Mass 2D 249 g CV PACS LVOT flow 393 mL/s CV PACS E/A Ratio 1.8 CV PACS E/E' Ratio Lateral 24 CV PACS BSA 2.54 m2 CV PACS LA Volume Index (BP) 56 mL/m2 CV PACS LVIDD Index 2.32 cm/m2 CV PACS LVIDS Index 2.03 cm/m2 CV PACS LV Mass Index 2D 103(A) 50 - 102 g/m2 CV PACS LVOT Stroke Index 59 mL/m2 CV PACS RA 2D Volume Index 18 18 - 32 mL/m2 CV PACS Ascending Aorta Index 1.49 cm/m2 CV PACS Right Ventricular Peak Systolic Pressure 46 mmHg CV PACS Est. RA Pressure 15 mmHg CV PACS Anatomical Region Laterality Modality Ultrasound Narrative 07/18/2025 9:16 AM EDT Left ventricle cavity size is normal. There is mild concentric hypertrophy. Systolic function is normal with an ejection fraction of 55-60%. Endocardial border visualization is somewhat suboptimal and regional wall motion is probably normal There is Grade II (moderate) diastolic dysfunction. Right ventricle cavity is mildly dilated. Systolic function is normal. Left atrium cavity is moderately dilated. Mild mitral regurgitation. The right ventricular systolic pressure is moderately elevated. The RVSP is estimated at 46 mmHg. There are no significant changes compared to previous study of 07/27/2020. Suggest to use contrast in future study. Left Ventricle Left ventricle cavity size is normal. There is mild concentric hypertrophy. Systolic function is normal with an ejection fraction of 55-60%. Endocardial border visualization is somewhat suboptimal and regional wall motion is probably normal There is Grade II (moderate) diastolic dysfunction. Right Ventricle Right ventricle cavity is mildly dilated. Systolic function is normal. Left Atrium Left atrium cavity is moderately dilated. Right Atrium Right atrium cavity is normal. IVC/SVC Inferior vena cava structure is normal. RA pressures is estimated to be 15 mmHg (IVC diameter >21 mm and decreases <50% during inspiration). Mitral Valve The leaflets are mildly thickened. There is mild annular calcification. There is mild regurgitation with a centrally directed jet. There is no significant stenosis noted. Tricuspid Valve Tricuspid valve structure is normal. There is no significant regurgitation. There is no significant tricuspid valve stenosis. The right ventricular systolic pressure is moderately elevated. The RVSP is estimated at 46 mmHg. Aortic Valve The aortic valve is trileaflet. The leaflets are not thickened and exhibit normal excursion. There is trace regurgitation with a centrally directed jet. There is no evidence of aortic valve stenosis. Pulmonic Valve The pulmonic valve was not well visualized. There is mild pulmonic valve regurgitation. No significant pulmonary valve stenosis noted. Ascending Aorta The aorta was not well visualized. Pericardium Pericardium appears normal. There is no pericardial effusion. Study Details Overall the study quality was technically difficult. Rylan Martinez NP CV ECHO PROCEDURES Final Result from Last 3 Months Insurance MEDICARE [facility] [place] [id number] Care Teams Turntable Worker Relationship Specialty Start Date End Date Liseth Martinez MD [address] [place] [address] PCP - General 09/05/22
[2025-09-15 10:26] LABS: MANUAL DIFF FLAG NO
[2025-09-15 10:37] LABS: Hematocrit 43.8 % (42.0-52.0); Hemoglobin 15.0 g/dl (14.0-18.0); Imm Gran Abs Auto 0.04 X10*3/uL (0.00-0.03); Imm Gran Pct Auto 0.4 % (0.0-0.4); Lymphocytes Absolute Auto 2.0 X10*3/uL (1.2-4.9); Mean Corpuscular HGB Conc 34.2 g/dl (31.0-36.0); Mean Corpuscular Hemoglobin 32.3 pg (27.0-33.0); Mean Corpuscular Volume 94.2 fL (80.0-98.0); NRBC Abs Auto 0.000 X10*3/uL (0.0-0.012); NRBC Pct Auto 0.0 /100WBC (0.0-0.2); Platelet Count 186 X10*3/uL (160-400); Red Blood Count 4.65 X10*6/uL (4.60-5.80); White Blood Count 9.2 X10*3/uL (4.8-10.8)
[2025-09-15 11:13] LABS: PSA,Total (Free>4and<10) 1.13 ng/mL (0.00-4.00)
[2025-09-15 11:14] LABS: Alanine Aminotransferase 37 U/L (0-40); Albumin Level 4.4 g/dL (3.5-5.0); Alkaline Phosphatase 56 U/L (39-117); Anion Gap 12 (12-20); Aspartate Amino Transferase 33 U/L (5-37); Blood Urea Nitrogen 22 mg/dL (9-16); Calcium 9.4 mg/dL (8.4-10.2); Carbon Dioxide 30 mmol/L (22-29); Chloride 104 mmol/L (96-108); Cholesterol 136 mg/dL (<200); Estimated Glomerular Filt Rate > 60; HDL Cholesterol 51 mg/dL (>40); Potassium 3.8 mmol/L (3.3-5.1); Sodium 142 mmol/L (135-145); Total Protein 7.4 g/dL (6.5-8.0); Triglycerides 87 mg/dL (<150)
[2025-09-15 11:38] LABS: Appearance Urine Clear; Glucose Urine UA Negative (Negative); PH 5.5 (5.0-9.0); Specific Gravity - Urine 1.015 (1.005-1.025)
== END 2025-09-15 07:35 | disposition home or self-care (01) ==
LOC: HO.HMGCLDS 07:34
PROVIDERS: PCP Internal Medicine; Visit Provider Internal Medicine
DX: Z00.00 Encounter for general adult medical examination without abnormal findings (principal); I10 Essential (primary) hypertension; E66.01 Morbid (severe) obesity due to excess calories; R73.01 Impaired fasting glucose; I25.10 Atherosclerotic heart disease of native coronary artery without angina pectoris; E78.5 Hyperlipidemia, unspecified; G47.30 Sleep apnea, unspecified; N40.1 Benign prostatic hyperplasia with lower urinary tract symptoms; R33.8 Other retention of urine
CPT/HCPCS: 36415; 80053; 80061; 81001; 83036; 84153; 85025; 96127

== ENCOUNTER 2025-09-15 08:19 | Outpatient (AMB) | payer OTHER, SELFPAY ==
--- NOTE | 2025-09-15 08:25 | MHC.PC.OV ---
Vital Signs 09/15/25 08:36 Height 5 ft 8 in Weight 303 lb BMI 46.1 BP 128/74 Blood Pressure Location Lt brachial Position Sitting Pulse 67 Pulse Source Pulse Oximeter Temp 98.4 F Temp Source Oral Pulse Oximetry (%) 96 Oxygen Delivery Method Room Air Intake Visit Reasons: Transfer of care per YL/PE due Intake Note: Pt is here today for Transfer of Care from Dr. Michelle JOHNSTON. Allergies No Known Allergies (No Known Allergies*) Allergy (Verified 09/15/25 08:41) Medication List - Last Reconciled 09/15/25 by Cyndee Vargas MD amlodipine-valsartan 10-320 mg 1 tab PO DAILY aspirin 81 mg PO DAILY atorvastatin 80 mg PO DAILY bumetanide 2 tabs PO DAILY cholecalciferol (vitamin D3) 1,250 mcg PO QWEEK 3 months hydralazine 25 mg PO BID potassium chloride ER 1 cap PO DAILY tadalafil 10 mg PO DAILY tamsulosin 0.4 mg PO BEDTIME 90 days Tobacco use date assessed: 09/15/25 Fall risk assessment: No Falls in past year Last assessed Fall Risk: 09/15/25 Dental Screening Dental Screen Date: 09/15/25 Did you have a dental visit in the last 12 months?: Yes Did you have a dental problem in the last 6 months where you did not have access to dental care?: No Was dental information given to patient?: Patient has dentist HPI Transfer of care per YL/PE due HPI Details Pt presents for PE. 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 1. Little interest or pleasure in doing things: not at all 2. Feeling down, depressed, or hopeless: not at all 3. Trouble falling or staying asleep, or sleeping too much: not at all 4. Feeling tired or having little energy: not at all 5. Poor appetite or overeating: not at all 6. Feeling bad about yourself - or that you are a failure or have let yourself or your family down: not at all 7. Trouble concentrating on things, such as reading the newspaper or watching television: not at all 8. Moving or speaking so slowly that other people could have noticed. Or the opposite - being so fidgety or restless that you have been moving around a lot more than usual: not at all 9. Thoughts that you would be better off or of hurting yourself in some way: not at all Total score: 0 Depression Screening Interpretation: Negative Depression Screening Done: Yes 84599 - PHQ-9 Billing: Yes Source: Developed by Drs. Aj Ramesh, Asha Bradford, Roberto Tripp and colleagues, with an educational rolando from [employer]. Thrive Questionnaire Date Thrive assessed: 09/15/25 I am a: Patient What is your living situation today?: I have a steady place to live Within the past 12 months, did the food you bought not last and you didn't have the money to get more?: Never true Within the past 12 months, did you worry whether your food would run out before you got money to buy more?: Never true Do you have trouble paying for medicines?: No Do you have trouble getting transportation to medical appointments?: No Do you have trouble paying your heating and electricity bill?: No Do you have trouble taking care of your child, family member or friend?: No Do you have trouble with day-to-day activities such as bathing, preparing meals, shopping, managing finances, etc.?: No Are you currently unemployed and looking for a job?: No Are you interested in more education?: No Please select the resources that you would like help with: None Currently or been in a relationship where the following occur: No concerns reported THRIVE Score: 0 MANSOOR-7 AMB Questionnaire MANSOOR-7 Date MANSOOR - 7 assessed: 09/15/25 Feeling nervous, anxious, or on edge: 0 = Not at all Not being able to stop or control worryin = Not at all Worrying too much about different things: 0 = Not at all Trouble relaxin = Not at all Being so restless that it is hard to sit still: 0 = Not at all Becoming easily annoyed or irritable: 0 = Not at all Feeling afraid as if something awful might happen: 0 = Not at all Total MANSOOR-7 score (0-4 normal; 5-9 mild; 10-14 moderate; 15-21 severe): 0 Source: Developed by Drs. Aj Ramesh, Asha Bradford, Roberto Tripp and colleagues, with an educational rolando from [employer]. MANSOOR-7 Assessment Billing MANSOOR-7 Assessment Tool: MANSOOR-7 Assessment 30215 Review of Systems Const All systems reviewed & are unremarkable except as noted in HPI and below ENT Reports no additional complaints Card Reports no additional complaints Resp Reports no additional complaints GI Reports no additional complaints Reports no additional complaints Physical exam (Primary Care) Vital Signs: Last Vital Signs Temp 98.4 F 09/15/25 08:36 Pulse 67 09/15/25 08:36 BP 128/74 09/15/25 08:36 Pulse Ox 96 09/15/25 08:36 Oxygen Delivery Method Room Air 09/15/25 08:36 BMI result Body Mass Index 46.1 Tobacco/Smoking Status: Tobacco use Status Tobacco use date assessed 09/15/25 09/15/25 08:42 Patient Tobacco Use Status Former Tobacco user 09/15/25 08:26 e-Cigarette/Vaping Use Never Used 09/15/25 08:26 PHQ-9: PHQ-9 Score PHQ-9: Total score 0 09/15/25 09:06 Depression Screening Interpretation: Negative Thrive Assessment: Date of Thrive Assessment Date Thrive assessed 09/15/25 09/15/25 08:56 Currently or been in a relationship where the following occur: No concerns reported Const General: no acute distress HENMT Head: Yes normal to inspection Face and sinus: Yes normal facial exam Throat: Yes posterior oropharynx normal Resp Effort & Inspection: normal respiratory effort Auscultation: clear to auscultation bilaterally Cardio Rhythm: regular rhythm Heart sounds: S1 normal heart sound present and S2 normal heart sound present GI Inspection: Yes normal to inspection Palpation (GI): Soft to palpation Percussion: Yes normal to percussion Auscultation: normal bowel sounds Extrem Other: 3+ pitting edema and chronic venous stasis atrophic changes on both lower extremities Coding Level of Care Code Est Pt Prev Care >65y(71907) Diagnoses Primary hypertension I10 Hypertension type: primary hypertension Morbid obesity E66.01 Impaired fasting glucose R73.01 Coronary artery disease involving nondalton heart, unspecified vessel or lesion type, unspecified whether angina present I25.10 Coronary Disease-Associated Artery/Lesion type: unspecified vessel or lesion type [place] vs. transplanted heart: nondalton heart Associated angina: unspecified whether angina present Dyslipidemia E78.5 Sleep apnea G47.30 Annual physical exam Z00.00 Additional Codes MANSOOR-7 Assessment Billing - MANSOOR-7 Assessment Tool: MANSOOR-7 Assessment 12558 ([id number]) PHQ-9 - 93606 - PHQ-9 Billing: Yes ([id number]) Assessment & Plan Assessment & Plan (1) HTN (hypertension): Comment: Managed by cardiology Code(s): I10 - Essential (primary) hypertension Category: Medical Qualifiers: Hypertension type: primary hypertension Qualified Code(s): I10 - Essential (primary) hypertension Plan: Continue current medications (2) Morbid obesity: Code(s): E66.01 - Morbid (severe) obesity due to excess calories Category: Medical Plan: Decreasing caloric intake increasing physical activity and weight loss discussed with the patient. (3) Impaired fasting glucose: Code(s): R73.01 - Impaired fasting glucose Category: Medical Plan: ADA diet increase exercise weight loss discussed with the patient. Check A1c today (4) CAD (coronary artery disease): Comment: s/p stent 2009, Dr. Reza Hardwick, CT coronary and Echo 07/2025 Code(s): I25.10 - Atherosclerotic heart disease of nondalton coronary artery without angina pectoris Category: Medical Qualifiers: Coronary Disease-Associated Artery/Lesion type: unspecified vessel or lesion type [place] vs. transplanted heart: nondalton heart Associated angina: unspecified whether angina present Qualified Code(s): I25.10 - Atherosclerotic heart disease of nondalton coronary artery without angina pectoris Plan: Continue current medications follow-up with Cardiology (5) Dyslipidemia: Code(s): E78.5 - Hyperlipidemia, unspecified Category: Medical Plan: Continue statin (6) Sleep apnea: Comment: on Cpap Code(s): G47.30 - Sleep apnea, unspecified Category: Medical Plan: Continue CPAP. Patient was advised to have repeat sleep studies but he declined (7) Annual physical exam: Code(s): Z00.00 - Encounter for general adult medical examination without abnormal findings Category: Medical Plan: Well-balanced diet regular exercise weight loss discussed with the patient. Cologuard will be checked for colon cancer screen Orders: Orders Complete Blood Count Auto Diff 1 Year E78.5 - Hyperlipidemia, unspecified, I10 - Essential (primary) hypertension, R73.01 - Impaired fasting glucose UA w Microscopic 1 Year E78.5 - Hyperlipidemia, unspecified, I10 - Essential (primary) hypertension, R73.01 - Impaired fasting glucose Hemoglobin A1c 1 Year E78.5 - Hyperlipidemia, unspecified, I10 - Essential (primary) hypertension, R73.01 - Impaired fasting glucose PSA,Total (Free>4and<10) 1 Year E78.5 - Hyperlipidemia, unspecified, I10 - Essential (primary) hypertension, R73.01 - Impaired fasting glucose Comprehensive [place]. Panel Fast 1 Year E78.5 - Hyperlipidemia, unspecified, I10 - Essential (primary) hypertension, R73.01 - Impaired fasting glucose Lipid Panel 1 Year E78.5 - Hyperlipidemia, unspecified, I10 - Essential (primary) hypertension, R73.01 - Impaired fasting glucose Referrals Cologuard Test Z12.11 - Encounter for screening for malignant neoplasm of colon, Z12.12 - Encounter for screening for malignant neoplasm of rectum
[2025-09-15 08:36] VITALS: BP 128/74; PULSE 67; TEMP 36.9; O2SAT 96; BMI 46.1
== END 2025-09-15 09:42 | disposition home or self-care (01) ==
LOC: HO.HMCC 08:20
PROVIDERS: PCP Internal Medicine; Visit Provider Internal Medicine
DX: Z00.00 Encounter for general adult medical examination without abnormal findings (principal); I10 Essential (primary) hypertension; E66.01 Morbid (severe) obesity due to excess calories; Z68.42 Body mass index [BMI] 45.0-49.9, adult; R73.01 Impaired fasting glucose; I25.10 Atherosclerotic heart disease of native coronary artery without angina pectoris; E78.5 Hyperlipidemia, unspecified; G47.30 Sleep apnea, unspecified